=== PATIENT | female | born 1950 | race Caucasian/White ===

== ENCOUNTER 2021-07-11 20:07 | Inpatient (IN) ==
--- NOTE | 2021-07-11 20:31 | Emergency Department Note ---
HPI General Chief complaint: Syncope Stated complaint: syncope Time Seen by Provider: 07/11/21 20:30 Source: EMS Mode of arrival: EMS Limitations: no limitations History of Present Illness HPI Narrative: Narrative: The patient is a 71-year-old female who presents by ambulance. Patient states that she has approximately 4 days postop from outpatient cholecystectomy. She reports syncopal episode x2 today. Patient states that she is having generalized discomfort, lightheadedness and is unable to eat or drink anything. She reports decreased urinary output as well. She states she had one episode of black loose stool. Patient states has been taking acetaminophen as well as ibuprofen and oxycodone. Denies any other complaints. Patient denies taking any blood thinners or anticoagulants. Related Data Home Medications Medication Instructions Recorded Confirmed cholecalciferol (vitamin D3) 25 1,000 unit PO QDAY 12/22/18 07/06/21 mcg (1,000 unit) capsule coenzyme Q10 100 mg capsule 100 mg PO QDAY 12/22/18 07/06/21 (CoQ-10) magnesium oxide-magnesium amino 1 cap PO QDAY cap 12/22/18 07/06/21 acid chelate 300 mg capsule multivit with 1 tab PO QDAY 12/22/18 07/06/21 igyazfeo-xpea-LV-lutein 8 mg iron-400 mcg-300 mcg tablet (Centrum Silver Women) omega 0-ire-zui-fish oil 100 2 cap PO QDAY 12/22/18 07/06/21 mg-150 mg-750 mg capsule vit C,E,zinc,copper-jgqlx4c 250 1 cap PO QDAY 11/23/20 07/06/21 mg-lutein 5 mg-zeaxanthin 1 mg capsule (Ocuvite Adult 50 Plus) gabapentin 100 mg capsule 200 mg PO QAM 07/05/21 07/06/21 lisinopril 10 mg tablet 10 mg PO QAM 07/05/21 07/06/21 piroxicam 10 mg capsule (Feldene) 10 mg PO QAM 07/05/21 07/06/21 Previous Rx's Medication Instructions Recorded atorvastatin 10 mg tablet 10 mg PO QDAY #90 tab 07/11/20 hydrochlorothiazide 25 mg tablet 25 mg PO QDAY #90 tab 07/11/20 acetaminophen 650 mg 650 mg PO Q8H PRN #90 tab 07/06/21 tablet,extended release (Tylenol 8 Hour) ibuprofen 800 mg tablet 800 mg PO TID PRN #90 tab 07/06/21 oxycodone 5 mg tablet 5 mg PO Q6H PRN #5 tab 07/06/21 Allergies Allergy/AdvReac Type Severity Reaction Status Date / Time No Known Drug Allergies Allergy Verified 07/04/21 10:24 Review of Systems ROS ROS Narrative: Narrative: All systems ED: reviewed and negative except as stated. PFSH Narrative Patient History Narrative: Narrative: Medical/Surgical/Family History All Active Problems (Updated 07/11/21 @ 23:16 by Arden Lobo DO) Syncope (Acute) GI bleed (Acute) Thoracic radiculopathy (Acute) Abdominal pain (Acute) Radiculopathy of lumbar region (Acute) Spondylolisthesis, lumbar region (Chronic) Spondylosis without myelopathy or radiculopathy, lumbar region (Chronic) Arthritis (Chronic) Chronic SI joint pain (Chronic) Impetigo any site (Chronic) Other articular cartilage disorders, left hip (Chronic) Foot pain, right (Chronic) Hyperlipidemia (Chronic) Hip pain (Chronic) Well adult exam (Chronic) BMI 29.0-29.9,adult (Chronic) Paresthesia of lower limb (Chronic) Diverticulosis of colon without hemorrhage (Chronic) Colonic polyp (Chronic) Rheumatoid factor positive (Chronic) Polyarthralgia (Chronic) 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) Weight gain (Chronic) Sebaceous cyst (Chronic) Varicose veins of lower extremity (Chronic) Plantar fasciitis (Chronic) Stress (Chronic) Cyst (Chronic) Lumbar back pain (Chronic) Seborrheic keratosis (Chronic) Joint stiffness (Chronic) Joint pain (Chronic) Foot swelling (Chronic) Insomnia (Chronic) Right shoulder pain (Chronic) Right knee pain (Chronic) Left hip pain (Chronic) Hypertension (Chronic) Medical History ANDREW positive Arthritis BMI 29.0-29.9,adult Chronic SI joint pain Colonic polyp Cyst Diverticulosis of colon without hemorrhage Familial multiple lipomatosis Foot pain, right Foot swelling Hip pain Left Hyperlipidemia Hypertension Insomnia Joint pain Joint stiffness Left hip pain Lumbar back pain Other articular cartilage disorders, left hip Paresthesia of lower limb Plantar fasciitis Polyarthralgia Rheumatoid factor positive Right knee pain Right shoulder pain Sebaceous cyst Seborrheic keratosis Spondylolisthesis, lumbar region Spondylosis without myelopathy or radiculopathy, lumbar region Stress Thoracic radiculopathy Varicose veins of lower extremity Weight gain Well adult exam Surgical History History of anterior cruciate ligament surgery History of left knee surgery History of shoulder surgery (~08/31/20) Left shoulder arthroscopy with extensive debridement of rotator cuff, labrum, biceps, and subacromial space. Dr. Vasquez. History of surgery Varicose Vein Stripping and Injections History of vein stripping Hx of colonoscopy (11/10/18) Dr Dawkins, diverticulosis, sm polyp transverse colon. S/P hysterectomy S/P knee surgery Right Family History Mother Breast cancer Osteoporosis Hypertension Osteoarthritis Cancer Rheumatoid arthritis Sister , when in her 40's Breast cancer Brain cancer Hypertension Cancer Father Osteoarthritis Osteoporosis Cancer Diabetes Heart attack Social History Smoking Status: Never smoker Alcohol Intake Frequency: a few times a month Substance Use: does not use Exam Narrative Narrative: Narrative: General Limitations: no limitations General appearance: Present alert Head Head: Present atraumatic and normocephalic Eye Eye: Present normal appearance, PERRL and EOMI ENT ENT: Present normal exam, normal oropharynx and mucous membranes moist Neck Neck: Present normal inspection, full ROM and trachea midline Chest Chest: Present normal inspection and symmetric chest wall rise Respiratory Respiratory: Present normal lung sounds bilaterally Cardiovascular Cardiovascular: Present regular rate and normal rhythm Adbominal Abdominal: Present soft, tenderness and normal bowel sounds; Absent distention, rigidity, ascites or pulsatile mass Rectal Rectal: Present deferred Extremities Extremities: Present normal inspection and full ROM; Absent tenderness Back Back: Present normal inspection and full ROM; Absent tenderness Neurological Neurological: Present alert, oriented X3, CN II-XII intact and other (No facial droop, no pronator drift and no unilateral weakness.) Psychiatric Psychiatric: Present normal affect Skin Skin: Present warm (WNL); Absent rash Course Course Course Narrative: EKG shows a rate of 103, IN interval 130, QRS 85, QTc 451, sinus tachycardia, no STEMI, normal axis, premature ventricular contractions noted. Nonspecific EKG. CT scan of the head without IV contrast shows no acute intracranial abnormality, CT scan of the chest, abdomen and pelvis with IV contrast shows mild to moderate wall thickening and stranding seen of the proximal duodenum may represent duodenitis versus possible duodenal ulcer disease. No evidence for perforation. Patient's blood pressure is improved to systolics of 110. Heart rate improved to the 80s. Patient received IV Protonix as well. I suspect her drop in hemoglobin from 14-10 is likely to upper GI bleed secondary to NSAID use. We will hold any NSAIDs at this time. Patient will be treated with IV fluids and monitored closely overnight. I spoke with the general surgeon Dr. Kane Pereira who is agreed to admit this patient. Vital Signs Vital signs: Vital Signs Temperature 98.0 F 07/11/21 20:08 Pulse Rate 99 H 07/11/21 20:08 Respiratory Rate 18 07/11/21 20:08 Blood Pressure 116/75 07/11/21 20:08 Pulse Oximetry (%) 96 07/11/21 20:08 Temperature 98.0 F 07/11/21 20:08 Pulse Rate 91 H 07/11/21 23:01 Respiratory Rate 14 07/11/21 23:19 Blood Pressure 149/62 07/11/21 23:17 Pulse Oximetry (%) 95 07/11/21 23:01 MDM MDM Narrative Medical decision making narrative: Narrative: Lab Data Result diagrams: 07/11/21 21:19 07/11/21 21:19 Labs: Lab Results 07/11/21 07/11/21 07/11/21 Range/Units 21:19 21:19 21:19 WBC 8.1 (4.5-11.0) K/mcL RBC 3.70 (3.59-5.38) M/mcL Hgb 10.6 L (11.2-15.7) g/dL Hct 32.2 L (34.1-44.9) % MCV 87.0 (80.0-100.0) fL MCH 28.6 (26.0-34.0) pg MCHC 32.9 (31.0-36.0) g/dL RDW 13.0 (11.5-14.5) % Plt Count 213 (140-440) K/mcL MPV 9.5 (7.4-10.4) fL Neut % (Auto) 85.4 H (38.0-78.0) % Lymph % (Auto) 8.6 L (15.5-49.0) % [place] % (Auto) 5.7 (1.0-12.0) % Eos % (Auto) 0.1 (0.0-7.0) % Baso % (Auto) 0.2 (0.0-2.0) % Lymph # (Auto) 0.70 L (1.50-4.80) K/mcL [place] # (Auto) 0.46 (0.10-0.90) K/mcL Eos # (Auto) 0.01 (0.00-0.70) K/mcL Baso # (Auto) 0.02 (0.00-0.30) K/mcL Absolute Neutrophils 6.91 (1.80-8.00) K/mcL PT (11.9-14.5) sec INR (0.9-1.1) VBG Lactic Acid 1.6 (0.5-2.0) mmol/L Sodium 135 (133-145) mmol/L Potassium 4.4 (3.3-5.1) mmol/L Chloride 102 (96-108) mmol/L Carbon Dioxide 21 L (22-30) mmol/L Anion Gap 12.0 (8.0-16.0) BUN 46 H (8-23) mg/dL Creatinine 1.1 (0.6-1.1) mg/dL GFR Calculation 51 Glucose 142 H (70-105) mg/dL Calcium 8.3 L (8.6-10.4) mg/dL Magnesium 2.0 (1.6-2.5) mg/dL Total Bilirubin < 0.2 (0.1-1.0) mg/dL Direct Bilirubin < 0.2 (0-0.3) mg/dL AST 18 (<32) U/L ALT 19 (<40) U/L Alkaline Phosphatase 74 (39-117) U/L Total Creatine Kinase 189 H (24-170) U/L Troponin T (<0.03) ng/mL NT-Pro-B Natriuret Pep 298.4 H (<125.0) pg/mL Total Protein 5.6 L (5.9-8.4) gm/dL Albumin 3.2 (3.2-5.2) gm/dL Globulin 2.4 (2.2-3.7) gm/dL Albumin/Globulin Ratio 1.3 (1.0-2.3) Lipase 26 (7-60) U/L 07/11/21 07/11/21 Range/Units 21:20 21:20 WBC (4.5-11.0) K/mcL RBC (3.59-5.38) M/mcL Hgb (11.2-15.7) g/dL Hct (34.1-44.9) % MCV (80.0-100.0) fL MCH (26.0-34.0) pg MCHC (31.0-36.0) g/dL RDW (11.5-14.5) % Plt Count (140-440) K/mcL MPV (7.4-10.4) fL Neut % (Auto) (38.0-78.0) % Lymph % (Auto) (15.5-49.0) % [place] % (Auto) (1.0-12.0) % Eos % (Auto) (0.0-7.0) % Baso % (Auto) (0.0-2.0) % Lymph # (Auto) (1.50-4.80) K/mcL [place] # (Auto) (0.10-0.90) K/mcL Eos # (Auto) (0.00-0.70) K/mcL Baso # (Auto) (0.00-0.30) K/mcL Absolute Neutrophils (1.80-8.00) K/mcL PT 15.1 H (11.9-14.5) sec INR 1.1 (0.9-1.1) VBG Lactic Acid (0.5-2.0) mmol/L Sodium (133-145) mmol/L Potassium (3.3-5.1) mmol/L Chloride (96-108) mmol/L Carbon Dioxide (22-30) mmol/L Anion Gap (8.0-16.0) BUN (8-23) mg/dL Creatinine (0.6-1.1) mg/dL GFR Calculation Glucose (70-105) mg/dL Calcium (8.6-10.4) mg/dL Magnesium (1.6-2.5) mg/dL Total Bilirubin (0.1-1.0) mg/dL Direct Bilirubin (0-0.3) mg/dL AST (<32) U/L ALT (<40) U/L Alkaline Phosphatase (39-117) U/L Total Creatine Kinase (24-170) U/L Troponin T < 0.01 (<0.03) ng/mL NT-Pro-B Natriuret Pep (<125.0) pg/mL Total Protein (5.9-8.4) gm/dL Albumin (3.2-5.2) gm/dL Globulin (2.2-3.7) gm/dL Albumin/Globulin Ratio (1.0-2.3) Lipase (7-60) U/L Discharge Plan Patient/Caregiver Discharge Instructions Pt seen by CONTROL SYSTEMS TECHNICIAN/PA only: No Clinical Impression: Syncope, GI bleed Patient Disposition: Xfer As Inpt ([facility]) Condition: Fair Follow up with: Inez Farrar ARNP [Primary Care Provider] - Prescriptions: No Action Ocuvite Adult 50 Plus 250-5-1 mg capsule 1 cap PO QDAY 0RF Centrum Silver Women 8 mg iron-400 mcg-300 mcg tablet 1 tab PO QDAY 0RF coenzyme Q10 [CoQ-10] 100 mg capsule 100 mg PO QDAY 0RF cholecalciferol (vitamin D3) 1,000 unit capsule 1,000 unit PO QDAY 0RF omega 5-mbi-lfw-fish oil 100-150-750 mg capsule 2 cap PO QDAY 0RF magnesium oxide-Mg AA chelate 300 mg capsule 1 cap PO QDAY 0RF atorvastatin 10 mg tablet 10 mg PO QDAY Qty: 90 4RF hydrochlorothiazide 25 mg tablet 25 mg PO QDAY Qty: 90 4RF lisinopril 10 mg tablet 10 mg PO QAM 0RF piroxicam [Feldene] 10 mg capsule 10 mg PO QAM 0RF gabapentin 100 mg capsule 200 mg PO QAM 0RF Rx Instructions: 1 by mouth every day for 3 days then increase to 2 times a day ibuprofen 800 mg tablet 800 mg PO TID PRN (Reason: pain) Qty: 90 0RF acetaminophen [Tylenol 8 Hour] 650 mg tablet extended release 650 mg PO Q8H PRN (Reason: pain) Qty: 90 0RF oxycodone 5 mg tablet 5 mg PO Q6H PRN (Reason: pain) Qty: 5 0RF
[2021-07-11] MEDS ORDERED: 0.9 % SODIUM CHLORIDE 1,000 ML IV ONE ×2 (20:32→21:51)
[2021-07-11] MEDS ORDERED: ONDANSETRON 4 MG/2 ML VIAL IV ONE (20:32)
[2021-07-11 21:58] LABS: Basophils # (Auto) 0.02 K/mcL (0.00-0.30); Basophils % (Auto) 0.2 % (0.0-2.0); Eosinophils # (Auto) 0.01 K/mcL (0.00-0.70); Eosinophils % (Auto) 0.1 % (0.0-7.0); Hematocrit 32.2 % (34.1-44.9); Hemoglobin 10.6 g/dL (11.2-15.7); Lymphocytes % (Auto) 8.6 % (15.5-49.0); Mean Corpuscular HGB Conc 32.9 g/dL (31.0-36.0); Mean Platelet Volume 9.5 fL (7.4-10.4); Monocytes # (Auto) 0.46 K/mcL (0.10-0.90); Monocytes % (Auto) 5.7 % (1.0-12.0); Neutrophils % (Auto) 85.4 % (38.0-78.0); Platelet Count 213 K/mcL (140-440); WBC 8.1 K/mcL (4.5-11.0)
[2021-07-11 22:07] LABS: INR 1.1 (0.9-1.1); Prothrombin Time 15.1 sec (11.9-14.5)
[2021-07-11 22:41] LABS: proBNP 298.4 pg/mL (<125.0)
[2021-07-11 22:43] LABS: ALT/SGPT 19 U/L (<40); AST/SGOT 18 U/L (<32); Albumin 3.2 gm/dL (3.2-5.2); Albumin/Globulin Ratio 1.3 (1.0-2.3); Alkaline Phosphatase 74 U/L (39-117); Bilirubin,Direct < 0.2 mg/dL (0-0.3); Bilirubin,Total < 0.2 mg/dL (0.1-1.0); Blood Urea Nitrogen 46 mg/dL (8-23); Calcium 8.3 mg/dL (8.6-10.4); Carbon Dioxide 21 mmol/L (22-30); Chloride 102 mmol/L (96-108); Creatine Kinase 189 U/L (24-170); Globulin 2.4 gm/dL (2.2-3.7); Glomerular Filtration Rate 51; Glucose 142 mg/dL (70-105)
[2021-07-11] MEDS ORDERED: PANTOPRAZOLE 40 MG VIAL IV ONE (22:57)
[2021-07-11] MEDS ORDERED: ONDANSETRON 4 MG/2 ML VIAL IV PRN (23:20)
[2021-07-11] MEDS ORDERED: FAMOTIDINE/PF 20 MG/2 ML VIAL IV ONE (23:22)
[2021-07-11] MEDS ORDERED: 0.9 % SODIUM CHLORIDE 250 ML IV SCH (23:30)
[2021-07-12] MEDS ORDERED: 0.9 % SODIUM CHLORIDE 1,000 ML IV ONE (01:17)
--- NOTE | 2021-07-12 03:17 | Cat Scan Report ---
CLINICAL INFORMATION: Syncope and dizziness COMPARISON: None. TECHNIQUE: 2.5 mm helical slices were obtained in the skull base to vertex. Following reconstruction, axial reformatted images were reviewed at bone and parenchymal windows. The exam was performed using radiation dose optimization techniques including, but not limited to, automated exposure control, adjustment of the mA and/or kV according to patient size and use of iterative reconstruction technique. FINDINGS: The ventricles, sulci, fissures, and cisterns are symmetrically enlarged compatible with mild age-related atrophy. No extra-axial fluid collections are identified. Mild patchy chronic ischemic changes, in the deep cerebral white matter, are expected for age. There is no hemorrhage, mass effect, or edema. Bone windows show no osseous abnormality. Centimeter polyp right anterior sphenoid sinus and moderate mucosal thickening in the left lateral recess and left sphenoid sinus suggesting mild sinusitis IMPRESSION: Mild atrophy and chronic ischemic changes in the deep cerebral white matter-expected for age. No acute findings. Mild left sphenoid sinusitis Interpreted and Authenticated by: Alfonso Martin 07/12/21
--- NOTE | 2021-07-12 04:32 | Cat Scan Report ---
CLINICAL INFORMATION: Syncope with chest and abdomen pain. Recent cholecystectomy COMPARISON: Abdomen and pelvic CT 07/02/2021. TECHNIQUE: Enteric contrast was utilized. 80 cc of Isovue-370 were injected intravenously, and 50 seconds later, 0.625 mm helical slices were obtained from the lung apices through the subtrochanteric regions of the femurs. Following reconstruction, 2.5 mm sagittal, coronal and axial reformatted images were processed and reviewed at multiple windows and levels. 7 mm MIP reconstructions were obtained through the lungs to optimize nodule detection.The exam was performed using radiation dose optimization techniques including, but not limited to, automated exposure control, adjustment of the mA and/or kV according to patient size and use of iterative reconstruction technique. FINDINGS: Pulmonary parenchymal windows show minimal scattered groundglass airspace disease in the upper and lower lobes which is likely a combination of atelectasis and, perhaps, fibrosis. No sara infiltrates and no pulmonary nodules.. Pleural spaces are unremarkable-no effusions. Mediastinal windows show the heart is grossly normal in size and configuration. The pulmonary arteries are normal diameter well-opacified without evidence of embolus. Thoracic aorta is also normal diameter and well-opacified. There is no adenopathy in the mediastinal, hilar or axillary regions. Esophagus is grossly normal. The thyroid is unremarkable. Abdominal images show the gallbladder is surgically absent. Intrahepatic and common bile ducts are normal caliber for post postcholecystectomy state CBD is 7 mm. A 14 mm simple cyst is seen in the right hepatic lobe as previously seen. Mild diffuse fatty change noted. Both kidneys, adrenal glands, spleen, pancreas and aorta, including aortic branches, are normal in size, configuration and attenuation without focal lesion. There is no free air, free fluid or adenopathy. 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 The left common iliac vein continues as persistent left inferior vena cava which drains into the left renal vein. The entire right inferior vena cava is flattened with possible thrombus distally extending into the right common and external iliac veins. Enlarged internal iliac vein collaterals are seen in the presacral region. Collaterals appear to drain the right external iliac venous blood into the left iliac venous system. Pelvic images show normal urinary bladder. The uterus is surgically absent. Ovaries not identified with certainty. There are atrophic or surgically absent. There are multiple sigmoid diverticuli but no evidence of diverticulitis. The remainder of the large bowel, appendix region, small bowel and stomach are grossly normal. Bone windows again show grade 1 L4-5 spondylolisthesis due to degenerative facet disease. There is 8 mm L4 anterior subluxation. This results in moderate central canal, bilateral lateral recess IV foraminal narrowing. There is impingement of the exiting L4 and descending L5 nerve roots. Mild chronic wedging of all mid and lower thoracic vertebral bodies from approximately T5-T12. Endplate irregularity is compatible with chronic Scheuermann's disease. There is also moderate degenerative disc disease throughout the mid and lower thoracic spine. IMPRESSION: 1. 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 The right inferior vena cava is flattened with possible thrombus in the distal IVC with extension into the right common and external iliac veins. Large collaterals from the right internal iliac vein cross to drain into the left iliac venous system. These are, predominantly, located in the presacral region. Suggest right lower extremity Doppler to evaluate for right-sided DVT. Ultrasound of the inferior vena cava is also suggested to evaluate for IVC thrombus and diameter measurements. There is no evidence of pulmonary embolus. 2. Sigmoid diverticulosis. 3. Cholecystectomy changes. Bile ducts appear normal 4. Grade 1 L4-5 spondylolisthesis with broad disc protrusion and facet arthropathy resulting in moderate central canal bilateral lateral recess IV foraminal narrowing. There is impingement of the exiting L4 and descending L5 nerve roots. No change. Interpreted and Authenticated by: Alfonso Martin 07/12/21
[2021-07-12] MEDS: 0.9 % SODIUM CHLORIDE 10 ML SYRINGE IV SCH ×3 (05:07→21:19)
[2021-07-12 07:44] LABS: Basophils # (Auto) 0.03 K/mcL (0.00-0.30); Basophils % (Auto) 0.6 % (0.0-2.0); Eosinophils # (Auto) 0.02 K/mcL (0.00-0.70); Eosinophils % (Auto) 0.4 % (0.0-7.0); Hematocrit 26.9 % (34.1-44.9); Lymphocytes # (Auto) 0.63 K/mcL (1.50-4.80); Lymphocytes % (Auto) 13.2 % (15.5-49.0); Mean Cell Volume 86.8 fL (80.0-100.0); Mean Corpuscular HGB Conc 33.5 g/dL (31.0-36.0); Monocytes # (Auto) 0.41 K/mcL (0.10-0.90); Monocytes % (Auto) 8.6 % (1.0-12.0); Neutrophils % (Auto) 77.2 % (38.0-78.0); Platelet Count 186 K/mcL (140-440); Red Cell Distribution Width 13.4 % (11.5-14.5); WBC 4.8 K/mcL (4.5-11.0)
[2021-07-12] MEDS: DOCUSATE SODIUM 100 MG CAPSULE PO SCH ×2 (07:54→21:19)
--- NOTE | 2021-07-12 07:55 | EKG ---
[facility] Test Date: 2021-07-11 Pat Name: Suki Zamudio Department: ED Room: Gender: Female Nursing Program Manager: : 1950 Requested By: Arden Lobo Order Number: [id number] Reading MD: Elder Price D.O. Measurements Intervals [place] Rate: 103 P: 31 HI: 130 QRS: -20 QRSD: 85 T: 41 QT: 344 QTc: 451 Interpretive Statements Sinus tachycardia Multiform ventricular premature complexes Abnormal R wave progression Electronically Signed On 07-12-2021 7:55:12 PST by Elder Price D.O. /store/[email or web address]/[id number]
[2021-07-12] MEDS: 0.9 % SODIUM CHLORIDE 1,000 ML IV SCH ×2 (08:10→18:41)
[2021-07-12 08:13] LABS: ALT/SGPT 16 U/L (<40); AST/SGOT 14 U/L (<32); Albumin/Globulin Ratio 1.7 (1.0-2.3); Alkaline Phosphatase 59 U/L (39-117); Bilirubin,Direct < 0.2 mg/dL (0-0.3); Bilirubin,Total < 0.2 mg/dL (0.1-1.0); Blood Urea Nitrogen 44 mg/dL (8-23); Calcium 7.8 mg/dL (8.6-10.4); Carbon Dioxide 24 mmol/L (22-30); Chloride 112 mmol/L (96-108); Globulin 1.8 gm/dL (2.2-3.7); Glomerular Filtration Rate 75; Glucose 113 mg/dL (70-105); Lactate Dehydrogenase 137 U/L (135-225); Phosphorous 2.1 mg/dL (2.5-4.5); Triglycerides 183 mg/dL (<150); Uric Acid 5.5 mg/dL (2.5-8.0)
--- NOTE | 2021-07-12 08:23 | General Surg History&Physical ---
HPI History of Present Illness Patient information: Note initiated : 07/12/21 at 8:19 am Service Date, if different from initiated Date: [] Patient: Suki Zamudio a 71 y/o F admitted on 07/12/21 for syncope. Chief Complaint: [] History of present illness: Ms. Zamudio is a 71 year old F status post laparoscopic cholecystectomy 6 days ago who presents with history of lightheadedness, syncopal episode at home. She is brought in the emergency room where her hemoglobin had dropped four points. She was found to have guaiac positive stools. Patient has a long history of pain management and nonsteroidal medications over the last several years. Her most recent colonoscopy was 4 years ago, she has never had a upper endoscopy. She denies any nausea vomiting fevers or chills. She reports that her lightheadedness is somewhat better this morning. Review of Systems Review of systems: All systems are reviewed, negative other than above PFSH PFSH All Active Problems Syncope (Acute) GI bleed (Acute) Thoracic radiculopathy (Acute) Abdominal pain (Acute) Radiculopathy of lumbar region (Acute) Spondylolisthesis, lumbar region (Chronic) Spondylosis without myelopathy or radiculopathy, lumbar region (Chronic) Arthritis (Chronic) Chronic SI joint pain (Chronic) Impetigo any site (Chronic) Other articular cartilage disorders, left hip (Chronic) Foot pain, right (Chronic) Hyperlipidemia (Chronic) Hip pain (Chronic) Well adult exam (Chronic) BMI 29.0-29.9,adult (Chronic) Paresthesia of lower limb (Chronic) Diverticulosis of colon without hemorrhage (Chronic) Colonic polyp (Chronic) Rheumatoid factor positive (Chronic) Polyarthralgia (Chronic) 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) Weight gain (Chronic) Sebaceous cyst (Chronic) Varicose veins of lower extremity (Chronic) Plantar fasciitis (Chronic) Stress (Chronic) Cyst (Chronic) Lumbar back pain (Chronic) Seborrheic keratosis (Chronic) Joint stiffness (Chronic) Joint pain (Chronic) Foot swelling (Chronic) Insomnia (Chronic) Right shoulder pain (Chronic) Right knee pain (Chronic) Left hip pain (Chronic) Hypertension (Chronic) Medical History ANDREW positive Arthritis BMI 29.0-29.9,adult Chronic SI joint pain Colonic polyp Cyst Diverticulosis of colon without hemorrhage Familial multiple lipomatosis Foot pain, right Foot swelling Hip pain Left Hyperlipidemia Hypertension Insomnia Joint pain Joint stiffness Left hip pain Lumbar back pain Other articular cartilage disorders, left hip Paresthesia of lower limb Plantar fasciitis Polyarthralgia Rheumatoid factor positive Right knee pain Right shoulder pain Sebaceous cyst Seborrheic keratosis Spondylolisthesis, lumbar region Spondylosis without myelopathy or radiculopathy, lumbar region Stress Thoracic radiculopathy Varicose veins of lower extremity Weight gain Well adult exam Surgical History History of anterior cruciate ligament surgery History of left knee surgery History of shoulder surgery (~08/31/20) Left shoulder arthroscopy with extensive debridement of rotator cuff, labrum, biceps, and subacromial space. Dr. Vasquez. History of surgery Varicose Vein Stripping and Injections History of vein stripping Hx of colonoscopy (11/10/18) Dr Dawkins, diverticulosis, sm polyp transverse colon. S/P hysterectomy S/P knee surgery Right Family History Mother Breast cancer Osteoporosis Hypertension Osteoarthritis Cancer Rheumatoid arthritis Sister , when in her 40's Breast cancer Brain cancer Hypertension Cancer Father Osteoarthritis Osteoporosis Cancer Diabetes Heart attack Social History household members: spouse marital status: occupational status: retired frequency: 3-4 times per week smoking status: Never smoker alcohol intake frequency: a few times a month substance use type: does not use seatbelt use: always MEDS/ALLERGIES Home Medications and Allergies Home Medications Medication Instructions Recorded Confirmed Type cholecalciferol (vitamin D3) 25 1,000 unit PO QDAY 12/22/18 07/12/21 History mcg (1,000 unit) capsule coenzyme Q10 100 mg capsule 100 mg PO QDAY 12/22/18 07/12/21 History (CoQ-10) magnesium oxide-magnesium amino 1 cap PO QDAY cap 12/22/18 07/12/21 History acid chelate 300 mg capsule multivit with 1 tab PO QDAY 12/22/18 07/12/21 History rlklpmyd-cips-DS-lutein 8 mg iron-400 mcg-300 mcg tablet (Centrum Silver Women) omega 4-pyh-jbq-fish oil 100 2 cap PO QDAY 12/22/18 07/12/21 History mg-150 mg-750 mg capsule atorvastatin 10 mg tablet 10 mg PO QDAY #90 tab 07/11/20 07/12/21 Rx hydrochlorothiazide 25 mg tablet 25 mg PO QDAY #90 tab 07/11/20 07/12/21 Rx vit C,E,zinc,copper-mwbeq7g 250 1 cap PO QDAY 11/23/20 07/12/21 History mg-lutein 5 mg-zeaxanthin 1 mg capsule (Ocuvite Adult 50 Plus) gabapentin 100 mg capsule 200 mg PO QAM 07/05/21 07/12/21 History lisinopril 10 mg tablet 10 mg PO QAM 07/05/21 07/12/21 History piroxicam 10 mg capsule (Feldene) 10 mg PO QAM 07/05/21 07/12/21 History acetaminophen 650 mg 650 mg PO Q8H PRN #90 tab 07/06/21 07/12/21 Rx tablet,extended release (Tylenol 8 Hour) ibuprofen 800 mg tablet 800 mg PO TID PRN #90 tab 07/06/21 07/12/21 Rx oxycodone 5 mg tablet 5 mg PO Q6H PRN #5 tab 07/06/21 07/12/21 Rx Allergies Allergy/AdvReac Type Severity Reaction Status Date / Time No Known Drug Allergies Allergy Verified 07/04/21 10:24 Physical Examination Vital Signs Vital signs: Temp Pulse Resp BP Pulse Ox 98.0 F 96 H 18 129/67 97 07/12/21 07:28 07/12/21 07:28 07/12/21 07:28 07/12/21 07:28 07/12/21 07:28 General physical appearance General physical exam: well developed, well nourished and no distress Eyes Eye exam: PERRL and normal ocular movement ENT ENT exam: normal pinna, normal nares, normal mucosa, no hearing loss and no congestion Head Head exam IM: Present atraumatic and normocephalic Neck Neck exam: no masses, no bruits, trachea midline, no lymphadenopathy and no venous distension Cardiovascular Cardiovascular exam IM: Present normal rate and rhythm Respiratory Respiratory exam: normal expansion, normal respiratory effort, clear to percussion and clear to auscultation Abdomen Abdomen: Present soft, non tender and bowel sounds Hernia: Present none Genitourinary Genitourinary (Female): Present normal external genitalia Rectum Rectum: Present normal sphincter tone, no hemorrhoids, no tenderness, no masses and no bleeding Integumentary Integumentary: Present no rash, no growths and no abnormal pigmentation Neurologic Neurologic: Present normal coordination and normal sensation Musculoskeletal Musculoskeletal: Present normal gait and normal posture Psychiatric Psychiatric: Present oriented to time, oriented to person, oriented to place, speech is normal and memory intact Results Labs Result diagrams: 07/12/21 06:32 07/12/21 06:32 Labs: Abnormal lab results 07/11/21 07/11/21 07/11/21 Range/Units 21:19 21:19 21:20 RBC (3.59-5.38) M/mcL Hgb 10.6 L (11.2-15.7) g/dL Hct 32.2 L (34.1-44.9) % Neut % (Auto) 85.4 H (38.0-78.0) % Lymph % (Auto) 8.6 L (15.5-49.0) % Lymph # (Auto) 0.70 L (1.50-4.80) K/mcL PT 15.1 H (11.9-14.5) sec Chloride (96-108) mmol/L Carbon Dioxide 21 L (22-30) mmol/L Anion Gap (8.0-16.0) BUN 46 H (8-23) mg/dL Glucose 142 H (70-105) mg/dL Calcium 8.3 L (8.6-10.4) mg/dL Phosphorus (2.5-4.5) mg/dL GGT (5-36) U/L Total Creatine Kinase 189 H (24-170) U/L NT-Pro-B Natriuret Pep 298.4 H (<125.0) pg/mL Total Protein 5.6 L (5.9-8.4) gm/dL Albumin (3.2-5.2) gm/dL Globulin (2.2-3.7) gm/dL Triglycerides (<150) mg/dL 07/12/21 07/12/21 Range/Units 06:32 06:32 RBC 3.10 L (3.59-5.38) M/mcL Hgb 9.0 L (11.2-15.7) g/dL Hct 26.9 L (34.1-44.9) % Neut % (Auto) (38.0-78.0) % Lymph % (Auto) 13.2 L (15.5-49.0) % Lymph # (Auto) 0.63 L (1.50-4.80) K/mcL PT (11.9-14.5) sec Chloride 112 H (96-108) mmol/L Carbon Dioxide (22-30) mmol/L Anion Gap 6.0 L (8.0-16.0) BUN 44 H (8-23) mg/dL Glucose 113 H (70-105) mg/dL Calcium 7.8 L (8.6-10.4) mg/dL Phosphorus 2.1 L (2.5-4.5) mg/dL GGT 45 H (5-36) U/L Total Creatine Kinase (24-170) U/L NT-Pro-B Natriuret Pep (<125.0) pg/mL Total Protein 4.8 L (5.9-8.4) gm/dL Albumin 3.0 L (3.2-5.2) gm/dL Globulin 1.8 L (2.2-3.7) gm/dL Triglycerides 183 H (<150) mg/dL Diabetes panel 07/11/21 07/12/21 Range/Units 21:19 06:32 Sodium 135 142 (133-145) mmol/L Potassium 4.4 4.8 (3.3-5.1) mmol/L Chloride 102 112 H (96-108) mmol/L Carbon Dioxide 21 L 24 (22-30) mmol/L BUN 46 H 44 H (8-23) mg/dL Creatinine 1.1 0.8 (0.6-1.1) mg/dL Glucose 142 H 113 H (70-105) mg/dL Calcium 8.3 L 7.8 L (8.6-10.4) mg/dL AST 18 14 (<32) U/L ALT 19 16 (<40) U/L Alkaline Phosphatase 74 59 (39-117) U/L Total Protein 5.6 L 4.8 L (5.9-8.4) gm/dL Albumin 3.2 3.0 L (3.2-5.2) gm/dL Triglycerides 183 H (<150) mg/dL Calcium panel 07/11/21 07/12/21 Range/Units 21:19 06:32 Calcium 8.3 L 7.8 L (8.6-10.4) mg/dL Phosphorus 2.1 L (2.5-4.5) mg/dL Albumin 3.2 3.0 L (3.2-5.2) gm/dL Pituitary panel 07/11/21 07/12/21 Range/Units 21:19 06:32 Sodium 135 142 (133-145) mmol/L Potassium 4.4 4.8 (3.3-5.1) mmol/L Chloride 102 112 H (96-108) mmol/L Carbon Dioxide 21 L 24 (22-30) mmol/L BUN 46 H 44 H (8-23) mg/dL Creatinine 1.1 0.8 (0.6-1.1) mg/dL Glucose 142 H 113 H (70-105) mg/dL Calcium 8.3 L 7.8 L (8.6-10.4) mg/dL Adrenal panel 07/11/21 07/12/21 Range/Units 21:19 06:32 Sodium 135 142 (133-145) mmol/L Potassium 4.4 4.8 (3.3-5.1) mmol/L Chloride 102 112 H (96-108) mmol/L Carbon Dioxide 21 L 24 (22-30) mmol/L BUN 46 H 44 H (8-23) mg/dL Creatinine 1.1 0.8 (0.6-1.1) mg/dL Glucose 142 H 113 H (70-105) mg/dL Calcium 8.3 L 7.8 L (8.6-10.4) mg/dL Total Bilirubin < 0.2 < 0.2 (0.1-1.0) mg/dL AST 18 14 (<32) U/L ALT 19 16 (<40) U/L Alkaline Phosphatase 74 59 (39-117) U/L Total Protein 5.6 L 4.8 L (5.9-8.4) gm/dL Albumin 3.2 3.0 L (3.2-5.2) gm/dL All other labs normal. A/P Assessment and plan (1) GI bleed: Status: Acute Narrative A/P Narrative: This is a pleasant 71-year-old female 1 week status post laparoscopic cholecystectomy who presents with an apparent upper GI bleed. Risk, benefits, alternatives to treatment including EGD discussed with her at length. She and her verbalized understanding, all her questions are answered and they desire to proceed. Time Spent With Patient Time: Total time spent is greater than 50% in coordination of care (as documented) at patient's floor/unit and/or counseling patient:
[2021-07-12] MEDS ORDERED: PROPOFOL 200 MG/20 ML VIAL IV ONE (08:38)
[2021-07-12] MEDS ORDERED: MIDAZOLAM 2 MG/2 ML VIAL ONE (08:39)
[2021-07-12] MEDS ORDERED: PROPOFOL 200 MG/20 ML VIAL IV SCH (09:00)
[2021-07-12] MEDS ORDERED: MIDAZOLAM 2 MG/2 ML VIAL IV SCH (09:00)
[2021-07-12] MEDS ORDERED: 0.9 % SODIUM CHLORIDE 500 ML IV ONE (09:11)
--- NOTE | 2021-07-12 09:26 | EGD Procedure Note ---
EGD Procedure Notes Procedure Information Patient information: Note initiated : 07/12/21 at 9:22 am Service Date: 07/12/21 Patient: Suki Zamudio 71 y/o F admitted on 07/12/21 for syncope. Pre-op diagnosis general: Upper GI bleed Post-Op Diagnosis general: Same, large duodenal ulcer Procedure: Esophagogastroduodenoscopy Procedure Narrative: After risk benefits and alternatives to the procedure were discussed with the patient at length she verbalized understanding and desire to continue with the procedure. Patient was taken to endoscopy. Surgical timeout was taken to verify patient and procedure being performed sedation was administered with 2 mg of Versed and 100 mcg of propofol. An adult gastroscope was entered and advanced under direct vision into the second portion of the duodenum. The antrum was fully inspected, the scope was retroflexed in the stomach. Full examination revealed evidence of recent upper GI bleed, the stomach was fully irrigated and inspected including retroflexion which showed no evidence of of ulcer. The second portion of the duodenum was completely normal, the duodenal bulb was normal. At the the junction between the first and second portion of the duodenum there was a large ulcer with evidence of recent bleed with clot but no active bleed. The ulcer was approximately 3 cm in diameter. There was a smaller 5 cm well-healed ulcer just below this area. The scope was then withdrawn back into the stomach the air was suctioned free and the remainder of the esophagus was within normal limits. The GE junction was at 35 cm. Patient tolerated the procedure well. Assessment: Upper GI bleed, large duodenal ulcer. Patient will be admitted, started on IV proton pump inhibitor. We will follow hematocrit. Plan for repeat EGD in 6 weeks. Image EGD: 1. Full scope including retroflexion 2. Large 3 cm ulcer with clot, no active bleed. 3. 5 mm healed ulcer
[2021-07-12] MEDS: SUCRALFATE 1 GM/10 ML ORAL.SUSP PO SCH ×2 (11:33→17:59)
[2021-07-12] MEDS: PANTOPRAZOLE 40 MG VIAL IV SCH (16:33)
[2021-07-12] MEDS ORDERED: oxyCODONE HCL 5 MG TABLET PO PRN (16:35)
[2021-07-12] MEDS ORDERED: ACETAMINOPHEN 325 MG TABLET PO PRN (16:40)
[2021-07-12] MEDS: HYDROmorphone 0.5 MG/0.5 ML SYRINGE IV PRN (17:03)
[2021-07-12 20:07] LABS: Basophils # (Auto) 0.02 K/mcL (0.00-0.30); Basophils % (Auto) 0.5 % (0.0-2.0); Eosinophils # (Auto) 0.04 K/mcL (0.00-0.70); Eosinophils % (Auto) 0.9 % (0.0-7.0); Hematocrit 23.5 % (34.1-44.9); Hemoglobin 7.2 g/dL (11.2-15.7); Lymphocytes # (Auto) 0.52 K/mcL (1.50-4.80); Mean Cell Volume 91.1 fL (80.0-100.0); Mean Corpuscular HGB Conc 30.6 g/dL (31.0-36.0); Mean Platelet Volume 10.4 fL (7.4-10.4); Monocytes # (Auto) 0.39 K/mcL (0.10-0.90); Neutrophils % (Auto) 77.6 % (38.0-78.0); Platelet Count 175 K/mcL (140-440); RBC 2.58 M/mcL (3.59-5.38); Red Cell Distribution Width 13.6 % (11.5-14.5); WBC 4.3 K/mcL (4.5-11.0)
[2021-07-12] MEDS ORDERED: 0.9 % SODIUM CHLORIDE 250 ML IV SCH (20:30)
[2021-07-12] MEDS ORDERED: SENNOSIDES 1 TABLET PO SCH (21:00)
[2021-07-13] MEDS: SUCRALFATE 1 GM/10 ML ORAL.SUSP PO SCH ×4 (00:17→19:15)
[2021-07-13] MEDS: 0.9 % SODIUM CHLORIDE 1,000 ML IV SCH ×2 (04:22→19:14)
[2021-07-13] MEDS: 0.9 % SODIUM CHLORIDE 10 ML SYRINGE IV SCH ×2 (05:06→13:31)
[2021-07-13] MEDS: PANTOPRAZOLE 40 MG VIAL IV SCH (07:21)
[2021-07-13 07:49] LABS: Basophils # (Auto) 0.03 K/mcL (0.00-0.30); Basophils % (Auto) 0.8 % (0.0-2.0); Eosinophils # (Auto) 0.02 K/mcL (0.00-0.70); Eosinophils % (Auto) 0.6 % (0.0-7.0); Hematocrit 23.3 % (34.1-44.9); Hemoglobin 7.9 g/dL (11.2-15.7); Lymphocytes # (Auto) 0.73 K/mcL (1.50-4.80); Lymphocytes % (Auto) 20.6 % (15.5-49.0); Mean Cell Volume 84.7 fL (80.0-100.0); Mean Corpuscular HGB Conc 33.9 g/dL (31.0-36.0); Mean Platelet Volume 10.5 fL (7.4-10.4); Monocytes # (Auto) 0.41 K/mcL (0.10-0.90); Monocytes % (Auto) 11.6 % (1.0-12.0); Neutrophils % (Auto) 66.4 % (38.0-78.0); Platelet Count 138 K/mcL (140-440); RBC 2.75 M/mcL (3.59-5.38); WBC 3.5 K/mcL (4.5-11.0)
[2021-07-13] MEDS: DOCUSATE SODIUM 100 MG CAPSULE PO SCH (08:28)
--- NOTE | 2021-07-13 08:36 | General Surgery Progress Note ---
SUBJECTIVE Subjective Patient information: Note initiated : 07/13/21 at 8:34 am Service Date, if different from initiated Date: [] Patient: Suki Zamudio 71 y/o F admitted on 07/12/21 for syncope. Chief Complaint: [] Principal diagnosis: Upper GI bleed Interval history: This is a pleasant 71-year-old female 1 week status post laparoscopic cholecystectomy who he presented with a upper GI bleed. EGD yesterday significant for a large duodenal ulcer without signs of active bleed. Last 24 hours H&H is continued to drop, 2 units of blood gave 1 rise in hemoglobin. She continues to have bloody bowel movements and complains of not feeling well. Constitutional Vitals: Vital Signs Temp Pulse Resp BP Pulse Ox 97.1 F 98 H 16 104/64 96 07/13/21 06:56 07/13/21 06:56 07/13/21 06:59 07/13/21 06:56 07/13/21 06:59 Period Temp Pulse Resp BP Sys/Lauren Pulse Ox Last 24 Hr 97.1 F-98.6 F 86-104 16-24 87-124/52-75 94-100 Intake and Output 07/12/21 07/13/21 07/13/21 21:59 05:59 13:59 Intake Total 2363 1253 Output Total 1150 850 700 Balance 1213 403 -700 Weight 198 lb 5 oz Intake & Output: Intake & Output 07/12/21 07/13/21 07/13/21 21:59 05:59 13:59 Intake Total 2363 1253 Output Total 1150 850 700 Balance 1213 403 -700 Weight 198 lb 5 oz Intake: IV 1263 123 Sodium Chloride 0.9% 1,000 ml @ 1263 0 100 mls/hr IV .Q10H [facility] Rx#: [id number] Sodium Chloride 0.9% 250 ml @ 123 20 mls/hr IV .[id number] [facility] Rx#: [id number] Oral 1100 480 Blood Product 650 Output: Urine Catheter Amount 200 Void Amount 150 400 Stool 1000 250 700 Other: Meal Lunch Percent of Meal Consumed 100% Urine Appearance Clear Clear Clear Urine Color Dark Yellow Pale Straw Urine Odor Normal Normal Stool Size Copious Moderate Stool Color Dark Red Blood Dark Red Blood Dark Red Blood Stool Consistency Soft Liquid Liquid Loose # Voids 1 # Bowel Movements 5 General appearance: cooperative and no acute distress GI/Abdominal GI/Abdominal exam: Present soft; Absent distended or tenderness A/P Narrative A/P Narrative: Upper GI bleed with evidence of continued bleeding. We will make n.p.o., will discuss with Dr. Manrique possible repeat EGD versus transfer for interventional radiology for superselective embolization. 2 units of blood now, continue to follow H&H. Time Spent With Patient Time: Total time spent is greater than 50% in coordination of care (as documented) at patient's floor/unit and/or counseling patient:
[2021-07-13] MEDS ORDERED: 0.9 % SODIUM CHLORIDE 250 ML IV SCH ×3 (08:45→14:45)
[2021-07-13] MEDS: PANTOPRAZOLE 80 MG in 0.9 % SODIUM CHLORIDE 100 ML IV SCH ×2 (08:55→23:29)
[2021-07-13] MEDS ORDERED: MAGNESIUM OXIDE 400 MG TABLET PO SCH (09:00)
[2021-07-13] MEDS ORDERED: GABAPENTIN 100 MG CAPSULE PO SCH (09:00)
[2021-07-13] MEDS ORDERED: ATORVASTATIN 10 MG TABLET PO SCH (09:00)
[2021-07-13] MEDS ORDERED: HYDROCHLOROTHIAZIDE 25 MG TABLET PO SCH (09:00)
[2021-07-13] MEDS ORDERED: LISINOPRIL 10 MG TABLET PO SCH (09:00)
[2021-07-13] MEDS ORDERED: LACTATED RINGERS 500 ML IV ONE (12:20)
[2021-07-13] MEDS ORDERED: KETAMINE 50 MG/ML ML IV PRN (13:58)
[2021-07-13] MEDS ORDERED: PROPOFOL 200 MG/20 ML VIAL IV ONE ×2 (13:59→15:48)
[2021-07-13] MEDS ORDERED: MIDAZOLAM 2 MG/2 ML VIAL ONE ×2 (13:59→14:02)
[2021-07-13] MEDS ORDERED: PROPOFOL 200 MG/20 ML VIAL IV SCH (14:00)
[2021-07-13] MEDS ORDERED: MIDAZOLAM 2 MG/2 ML VIAL IV SCH (14:00)
--- NOTE | 2021-07-13 14:00 | Internal Medicine Consult Note ---
HPI Data of Consult Patient: new to practice Consult date: 07/13/21 Requesting physician: Kane Pereira Primary Care Provider: PAUL Burden Consult Narrative Chief complaint: GI bleed History of present illness: 71 year old white female with chronic back pain on Feldene and hydrocodone developed abdominal pain in March. US showed cholelithiasis so she underwent cholecystectomy last week and was discharged on a combination of oxycodone, tylenol and ibuprofen for post op pain control. She had no improvement in her abdominal pain with cholecystectomy and developed melena the day after she was discharged. She had 2 syncopal episodes earlier this week and presented to the ED. EGD yesterday, performed by Dr. Pereira, revealed a large duodenal ulcer (3cm) with adherent clot and stigmata of recent bleeding. There was a smaller partially healed ulcer. Unfortuantely her hgb continues to drop despite receiving 2 units of PRBC and she has had 1500ml of sara hematochezia this morning and hypotension. cc:: CC: Kane Pereira MD PFS PFSH All Active Problems Syncope (Acute) GI bleed (Acute) Thoracic radiculopathy (Acute) Abdominal pain (Acute) Radiculopathy of lumbar region (Acute) Spondylolisthesis, lumbar region (Chronic) Spondylosis without myelopathy or radiculopathy, lumbar region (Chronic) Arthritis (Chronic) Chronic SI joint pain (Chronic) Impetigo any site (Chronic) Other articular cartilage disorders, left hip (Chronic) Foot pain, right (Chronic) Hyperlipidemia (Chronic) Hip pain (Chronic) Well adult exam (Chronic) BMI 29.0-29.9,adult (Chronic) Paresthesia of lower limb (Chronic) Diverticulosis of colon without hemorrhage (Chronic) Colonic polyp (Chronic) Rheumatoid factor positive (Chronic) Polyarthralgia (Chronic) 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) Weight gain (Chronic) Sebaceous cyst (Chronic) Varicose veins of lower extremity (Chronic) Plantar fasciitis (Chronic) Stress (Chronic) Cyst (Chronic) Lumbar back pain (Chronic) Seborrheic keratosis (Chronic) Joint stiffness (Chronic) Joint pain (Chronic) Foot swelling (Chronic) Insomnia (Chronic) Right shoulder pain (Chronic) Right knee pain (Chronic) Left hip pain (Chronic) Hypertension (Chronic) Medical History ANDREW positive Arthritis BMI 29.0-29.9,adult Chronic SI joint pain Colonic polyp Cyst Diverticulosis of colon without hemorrhage Familial multiple lipomatosis Foot pain, right Foot swelling Hip pain Left Hyperlipidemia Hypertension Insomnia Joint pain Joint stiffness Left hip pain Lumbar back pain Other articular cartilage disorders, left hip Paresthesia of lower limb Plantar fasciitis Polyarthralgia Rheumatoid factor positive Right knee pain Right shoulder pain Sebaceous cyst Seborrheic keratosis Spondylolisthesis, lumbar region Spondylosis without myelopathy or radiculopathy, lumbar region Stress Thoracic radiculopathy Varicose veins of lower extremity Weight gain Well adult exam Surgical History History of anterior cruciate ligament surgery History of left knee surgery History of shoulder surgery (~08/31/20) Left shoulder arthroscopy with extensive debridement of rotator cuff, labrum, biceps, and subacromial space. Dr. Vasquez. History of surgery Varicose Vein Stripping and Injections History of vein stripping Hx of colonoscopy (11/10/18) Dr Dawkins, diverticulosis, sm polyp transverse colon. S/P hysterectomy S/P knee surgery Right Family History Mother Breast cancer Osteoporosis Hypertension Osteoarthritis Cancer Rheumatoid arthritis Sister , when in her 40's Breast cancer Brain cancer Hypertension Cancer Father Osteoarthritis Osteoporosis Cancer Diabetes Heart attack Social History household members: spouse marital status: occupational status: retired frequency: 3-4 times per week smoking status: Never smoker alcohol intake frequency: a few times a month substance use type: does not use seatbelt use: always MEDS/ALLERGIES Home Medications and Allergies Home Medications Medication Instructions Recorded Confirmed Type cholecalciferol (vitamin D3) 25 1,000 unit PO QDAY 12/22/18 07/12/21 History mcg (1,000 unit) capsule coenzyme Q10 100 mg capsule 100 mg PO QDAY 12/22/18 07/12/21 History (CoQ-10) magnesium oxide-magnesium amino 1 cap PO QDAY cap 12/22/18 07/12/21 History acid chelate 300 mg capsule multivit with 1 tab PO QDAY 12/22/18 07/12/21 History hwyhsskm-vett-KN-lutein 8 mg iron-400 mcg-300 mcg tablet (Centrum Silver Women) omega 5-szg-khy-fish oil 100 2 cap PO QDAY 12/22/18 07/12/21 History mg-150 mg-750 mg capsule atorvastatin 10 mg tablet 10 mg PO QDAY #90 tab 07/11/20 07/12/21 Rx hydrochlorothiazide 25 mg tablet 25 mg PO QDAY #90 tab 07/11/20 07/12/21 Rx vit C,E,zinc,copper-vzpgc7j 250 1 cap PO QDAY 11/23/20 07/12/21 History mg-lutein 5 mg-zeaxanthin 1 mg capsule (Ocuvite Adult 50 Plus) gabapentin 100 mg capsule 200 mg PO QAM 07/05/21 07/12/21 History lisinopril 10 mg tablet 10 mg PO QAM 07/05/21 07/12/21 History piroxicam 10 mg capsule (Feldene) 10 mg PO QAM 07/05/21 07/12/21 History acetaminophen 650 mg 650 mg PO Q8H PRN #90 tab 07/06/21 07/12/21 Rx tablet,extended release (Tylenol 8 Hour) ibuprofen 800 mg tablet 800 mg PO TID PRN #90 tab 07/06/21 07/12/21 Rx oxycodone 5 mg tablet 5 mg PO Q6H PRN #5 tab 07/06/21 07/12/21 Rx Allergies Allergy/AdvReac Type Severity Reaction Status Date / Time No Known Drug Allergies Allergy Verified 07/04/21 10:24 EXAM Constitutional Vitals: Temp Pulse Resp BP Pulse Ox 97.1 F 96 H 14 106/62 98 07/13/21 12:42 07/13/21 12:42 07/13/21 12:42 07/13/21 12:42 07/13/21 12:42 General appearance: average body habitus and cooperative Head Head exam: Present atraumatic, normal inspection and normocephalic Eye Eye exam: Present normal appearance Cardiovascular Cardiovascular exam: Present normal rate and rhythm; Absent gallop, rubs or systolic murmur GI/Abdominal GI/Abdominal exam: Present normal bowel sounds, soft and tenderness; Absent organomegaly Additional comments: epigastric tenderness Neurological Exam Neurological exam: Present alert and oriented X3 Skin Skin exam: Present dry, pallor and warm DATA Data Completed and Pending Labs: Labs from last 24 hours 07/13/21 07/12/21 05:58 17:38 WBC 3.5 L 4.3 L RBC 2.75 L 2.58 L Hgb 7.9 L 7.2 L Hct 23.3 L 23.5 L MCV 84.7 91.1 MCH 28.7 27.9 MCHC 33.9 30.6 L RDW 14.0 13.6 Plt Count 138 L 175 MPV 10.5 H 10.4 Neut % (Auto) 66.4 77.6 Lymph % (Auto) 20.6 12.0 L Emanuel % (Auto) 11.6 9.0 Eos % (Auto) 0.6 0.9 Baso % (Auto) 0.8 0.5 Lymph # (Auto) 0.73 L 0.52 L Emanuel # (Auto) 0.41 0.39 Eos # (Auto) 0.02 0.04 Baso # (Auto) 0.03 0.02 Absolute Neutrophils 2.35 3.37 A/P Assessment and plan (1) GI bleed: Assessment and plan: Strongly suspect she is having rebleeding of her duodenal ulcer. We will arrange for urgent EGD with Dr. Page. If we are unable to achieve hemostasis, she may require surgery or IR. She should avoid all NSAIDS and remain on PPI therapy for her life time. Status: Acute Time Spent With Patient Time: Total time spent is greater than 50% in coordination of care (as documented) at patient's floor/unit and/or counseling patient: Total time spent with greater than 50% in coordination of care (as documented) at patient's floor/unit and/or counseling patient:: 25 - 35 minutes
[2021-07-13] MEDS ORDERED: EPINEPHrine 1 MG/ML AMPUL IV ONE (14:19)
[2021-07-13] MEDS ORDERED: ceFAZolin 2 GM in DEXTROSE 5% IN WATER 50 ML IV SCH (15:15)
[2021-07-13] MEDS ORDERED: ONDANSETRON 4 MG/2 ML VIAL ONE (15:48)
[2021-07-13] MEDS ORDERED: LIDOCAINE HCL/PF 100 MG/5 ML SYRINGE IV ONE (15:48)
[2021-07-13] MEDS ORDERED: SUGAMMADEX SODIUM 200 MG/2 ML VIAL IV ONE (15:48)
[2021-07-13] MEDS ORDERED: KETAMINE 50 MG/ML Syringe (ANEST) IV ONE (15:48)
[2021-07-13] MEDS ORDERED: fentaNYL 250 MCG/5 ML VIAL IV ONE (15:48)
[2021-07-13] MEDS ORDERED: TRANEXAMIC ACID 1,000 MG/10 ML VIAL ONE (15:48)
[2021-07-13] MEDS ORDERED: ROCURONIUM 10 MG/ML ML IV ONE (15:48)
[2021-07-13] MEDS ORDERED: DEXAMETHASONE 10 MG/ML VIAL ONE (15:48)
[2021-07-13] MEDS ORDERED: MAGNESIUM SULFATE 2 GM/50 ML BAG IV ONE (15:48)
[2021-07-13] MEDS ORDERED: PROMETHAZINE 25 MG/ML VIAL IV PRN (17:13)
[2021-07-13] MEDS ORDERED: NALOXONE HCL 0.4 MG/ML VIAL IV PRN (17:13)
[2021-07-13] MEDS ORDERED: fentaNYL 100 MCG/2 ML VIAL IV PRN (17:13)
[2021-07-13] MEDS ORDERED: MEPERIDINE 25 MG/ML VIAL IV PRN (17:13)
[2021-07-13] MEDS ORDERED: diphenhydrAMINE 50 MG/ML VIAL IV PRN (17:13)
[2021-07-13] MEDS ORDERED: LACTATED RINGERS 250 ML IV PRN (17:13)
[2021-07-13] MEDS ORDERED: ACETAMINOPHEN 1,000 MG/100 ML BAG IV ONE ×2 (17:13→18:03)
[2021-07-13] MEDS ORDERED: IPRATROPIUM/ALBUTEROL 3 ML AMPUL.NEB NEB PRN (17:13)
[2021-07-13] MEDS ORDERED: ONDANSETRON 4 MG/2 ML VIAL IV PRN (17:13)
[2021-07-13] MEDS ORDERED: BENZOCAINE/MENTHOL 1 LOZENGE PO PRN (17:13)
[2021-07-13] MEDS ORDERED: LACTATED RINGERS 1,000 ML IV SCH (17:15)
--- NOTE | 2021-07-13 17:18 | Operative Note ---
Brief Operative Note Date of procedure: 07/13/21 Pre-op diagnosis: Bleeding duodenal ulcer Post-op diagnosis: other (Bleeding duodenal ulcer, perforated duodenal ulcer) Procedure: Exploratory laparotomy, oversew of bleeding duodenal ulcer, repair of perforation in duodenum, Vj patch Grafts/Implants: No Anesthesia: GETA Findings: Bleeding and perforated duodenal ulcer Complications: none Surgeon: Kane Pereira Estimated blood loss (cc): 100 Specimens Removed/Pathology: none sent Condition: stable Disposition: ICU Operative Note Operative Note: After risk benefits and alternatives to the procedure were discussed with both the patient and her they verbalized understanding and desire to continue with the procedure. Patient was taken main operating place upon the room table. General anesthesia was induced over endotracheal tube. NG tube and Ragsdale catheters were placed. Patient's and draped in the standard sterile surgical fashion. Surgical timeout was taken to verify patient and procedure being performed. Upper midline incision was made carried down through the skin and subtendinous tissue. The abdominal cavity was then entered under direct vision. Abdominal expiration revealed the duodenal ulcer had perforated. The perforation was opened further proximally and distally to gain full access to the duodenum. The previously placed clips were removed under direct vision and then the location of bleeding in the ulcer was identified. A 3-0 Prolene stitch was placed inferior to the bleeding site and tied down in anticipation of inferior superior and medial suture ligation. Once the single stitch was placed the bleeding completely stopped. The duodenum was copiously irrigated and all blood clot was removed as much as could be reached. The bleeding ulcer was inspected for approximately 15 minutes and no further bleeding was identified. The opening of the duodenum was then closed with interrupted 3-0 Prolene sutures, a tongue of omentum was freed from the transverse colon and it was tied with the tails of the suture repair over the repair and a standard Vj patch fashion. It was also tacked to the stomach with interrupted 3-0 silk sutures. Once this was done a 10 Japanese flat drain was placed in the gallbladder fossa near the repair. The rest abdominal cavity was inspected and no further pathology was identified. The NG tube was then manipulated and went past the repair without difficulty it was then pulled back into the stomach and secured at that location by anesthesia. The midline fascial defect was then closed with a running looped 0 PDS suture. Skin was closed with a running 4 Monocryl suture. Skin glue dressings were applied. The drain was sutured to the skin with a interrupted 2-0 nylon suture. Patient was then awakened from anesthesia transported to intensive care unit awake and in stable condition.
[2021-07-13] MEDS ORDERED: MEPERIDINE 50 MG/ML VIAL ONE (18:01)
[2021-07-13] MEDS: DEXTROSE 5%-1/2NS 1,000 ML IV SCH (18:57)
[2021-07-13 19:14] LABS: Hematocrit 31.2 % (34.1-44.9); Hemoglobin 10.7 g/dL (11.2-15.7); Mean Cell Volume 85.5 fL (80.0-100.0); Mean Corpuscular HGB Conc 34.3 g/dL (31.0-36.0); Platelet Count 125 K/mcL (140-440); RBC 3.65 M/mcL (3.59-5.38); Red Cell Distribution Width 14.1 % (11.5-14.5); WBC 10.7 K/mcL (4.5-11.0)
[2021-07-13] MEDS: HYDROmorphone 0.5 MG/0.5 ML SYRINGE IV PRN ×3 (19:22→23:59)
[2021-07-13 19:37] LABS: Lymphocytes % 5 % (15-49); Platelet Estimate DECREASED (Normal); RBC Morphology NORMAL (Normal); Segmented Neutrophils % 95 % (38-78)
[2021-07-14] MEDS: MEPERIDINE 25 MG/ML VIAL IV PRN (00:56)
[2021-07-14] MEDS ORDERED: MEPERIDINE 50 MG/ML VIAL ONE (00:57)
[2021-07-14] MEDS: DEXTROSE 5%-1/2NS 1,000 ML IV SCH ×3 (02:36→20:01)
[2021-07-14] MEDS: HYDROmorphone 0.5 MG/0.5 ML SYRINGE IV PRN ×10 (02:37→23:20)
[2021-07-14 06:54] LABS: Hematocrit 30.2 % (34.1-44.9); Hemoglobin 9.8 g/dL (11.2-15.7); Mean Cell Volume 87.8 fL (80.0-100.0); Mean Corpuscular HGB Conc 32.5 g/dL (31.0-36.0); Mean Platelet Volume 10.7 fL (7.4-10.4); Platelet Count 124 K/mcL (140-440); RBC 3.44 M/mcL (3.59-5.38); Red Cell Distribution Width 14.8 % (11.5-14.5); WBC 14.3 K/mcL (4.5-11.0)
[2021-07-14] MEDS: PANTOPRAZOLE 80 MG in 0.9 % SODIUM CHLORIDE 100 ML IV SCH ×3 (07:21→21:43)
[2021-07-14 08:22] LABS: Band Neutrophils % 5 % (0-10); Lymphocytes % 4 % (15-49); Monocytes % (Manual) 4 % (1-12); Platelet Estimate DECREASED (Normal); RBC Morphology NORMAL (Normal); Segmented Neutrophils % 87 % (38-78)
[2021-07-14] MEDS: PIPERACILLIN SODIUM/TAZOBACTAM 3.375 GM in DEXTROSE 5% IN WATER 50 ML IV SCH ×3 (11:32→23:38)
--- NOTE | 2021-07-14 11:40 | General Surgery Progress Note ---
SUBJECTIVE Subjective Patient information: Note initiated : 07/14/21 at 10:38 am Service Date, if different from initiated Date: [] Patient: Suki Zamudio 71 y/o F admitted on 07/13/21 for syncope. Chief Complaint: [POD #1 Repair of Perforated and Bleeding Duodenal Ulcer] Some pain this am, nursing adjusting the dilaudid dosing. Family at bedside. No SOB or chest pain. Principal diagnosis: Upper GI bleed Constitutional Vitals: Vital Signs Temp Pulse Resp BP Pulse Ox 98.1 F 88 17 131/66 92 07/14/21 08:00 07/14/21 06:00 07/14/21 11:01 07/14/21 11:01 07/14/21 11:01 Period Temp Pulse Resp BP Sys/Lauren Pulse Ox Last 24 Hr 96.9 F-99.5 F 42-125 9-27 84-165/45-119 92-100 Intake and Output 07/13/21 07/14/21 07/14/21 21:59 05:59 13:59 Intake Total 2487 956 1100 Output Total 660 575 395 Balance 1827 381 705 Weight 211 lb Intake & Output: Intake & Output 07/13/21 07/14/21 07/14/21 21:59 05:59 13:59 Intake Total 2487 956 1100 Output Total 660 575 395 Balance 1827 381 705 Weight 211 lb Intake: IV 215 075 0785 Sodium Chloride 0.9% 1,000 ml @ 737 100 mls/hr IV .Q10H [facility] Rx#: [id number] Sodium Chloride 0.9% 250 ml @ 0 20 mls/hr IV .[id number] [facility] Rx#: [id number] Dextrose 5%-1/2Ns IV Solution 1 956 1000 ,000 ml @ 125 mls/hr IV .Q8H [facility] Rx#:[id number] Protonix 80 mg In Sodium 100 100 Chloride 0.9% 100 ml @ 8 MG/HR 10 mls/hr IV Q10H [facility] Rx#: [id number] Ancef 2 gm In Dextrose 5% in 50 Water 50 ml @ 100 mls/hr IV PREOP [facility] Rx#:[id number] Oral 0 Tube Feeding 0 0 IV - Manual Only 1500 Output: Gastric Drainage 75 Right Nare 75 Drainage 60 205 70 Abdomen 60 Right Upper Abdomen MARILYN Drain 205 70 Drainage 70 Right Upper Abdomen MARILYN Drain 70 Urine Catheter Amount 500 225 Void Amount 325 Emesis 100 Other: Urine Appearance Clear Clear Clear Uretheral ([place]) Clear Clear Urine Color Bright Yellow Dark Yellow Light Noehmy Uretheral ([place]) Dark Yellow Dark Yellow Urine Odor Normal Exam: fully conversant and non toxic Head Head exam: Present atraumatic and normocephalic Eye Eye exam: Present normal appearance; Absent scleral icterus Respiratory Additional comments: normal respiratory effort without distress Cardiovascular Cardiovascular exam: Present RRR GI/Abdominal Additional comments: dressing in place, dry, belly soft and non distended. Functional NGT in place. JPD dark venous appearing blood, modest amounts Extremities Exam Additional comments: non edematous, well perfused A/P Assessment and plan (1) Duodenal ulcer: Assessment and plan: POD #1 Ex Lap with oversew and repair with cornel patch closure of perforated bleeding Duodenal Ulcer Doing reasonably well at this time with stable hemodynamics and brisk urine output, doubt any additional active bleeding at this time Re check H/H later today Continue PPI gtt Adjust pain meds, to bedside chair today if able, continue ICU care, will add IV ABs Re check labs in am Status: Acute Time Spent With Patient Time: Total time spent is greater than 50% in coordination of care (as documented) at patient's floor/unit and/or counseling patient:
[2021-07-14] MEDS ORDERED: PANTOPRAZOLE 40 MG VIAL IV ONE (21:12)
[2021-07-14 23:27] LABS: Hematocrit 23.2 % (34.1-44.9); Hemoglobin 7.7 g/dL (11.2-15.7)
[2021-07-15] MEDS ORDERED: 0.9 % SODIUM CHLORIDE 250 ML IV SCH ×3 (01:00→13:15)
[2021-07-15] MEDS: HYDROmorphone 0.5 MG/0.5 ML SYRINGE IV PRN ×11 (01:04→23:14)
[2021-07-15] MEDS: DEXTROSE 5%-1/2NS 1,000 ML IV SCH ×4 (04:29→18:54)
[2021-07-15] MEDS: PIPERACILLIN SODIUM/TAZOBACTAM 3.375 GM in DEXTROSE 5% IN WATER 50 ML IV SCH ×4 (05:47→23:20)
[2021-07-15 08:49] LABS: Blood Urea Nitrogen 24 mg/dL (8-23); Calcium 6.9 mg/dL (8.6-10.4); Carbon Dioxide 22 mmol/L (22-30); Chloride 110 mmol/L (96-108); Glomerular Filtration Rate 65; Glucose 128 mg/dL (70-105)
[2021-07-15] MEDS ORDERED: CALCIUM GLUCONATE 4.65 MEQ/10 ML VIAL IV ONE (09:01)
[2021-07-15] MEDS: PANTOPRAZOLE 80 MG in 0.9 % SODIUM CHLORIDE 100 ML IV SCH ×4 (09:08→20:00)
[2021-07-15] MEDS ORDERED: CALCIUM GLUCONATE 9.3 MEQ in DEXTROSE 5% IN WATER 50 ML IV ONE (09:15)
[2021-07-15] MEDS ORDERED: CALCIUM GLUCONATE 4.65 MEQ/10 ML VIAL ONE (09:18)
[2021-07-15 09:24] LABS: Hematocrit 27.8 % (34.1-44.9); Hemoglobin 9.2 g/dL (11.2-15.7); Mean Cell Volume 90.3 fL (80.0-100.0); Mean Corpuscular HGB Conc 33.1 g/dL (31.0-36.0); RBC 3.08 M/mcL (3.59-5.38); Red Cell Distribution Width 14.4 % (11.5-14.5); WBC 6.6 K/mcL (4.5-11.0)
[2021-07-15 09:55] LABS: Mean Platelet Volume 12.1 fL (7.4-10.4); Platelet Count 113 K/mcL (140-440)
[2021-07-15 10:05] LABS: Lymphocytes % 17 % (15-49); Monocytes % (Manual) 3 % (1-12); Platelet Estimate DECREASED (Normal); RBC Morphology NORMAL (Normal); Reactive Lymphocytes 2 % (0-2); Segmented Neutrophils % 78 % (38-78)
--- NOTE | 2021-07-15 10:39 | General Surgery Progress Note ---
SUBJECTIVE Subjective Patient information: Note initiated : 07/15/21 at 10:37 am Service Date, if different from initiated Date: [] Patient: Suki Zamudio 71 y/o F admitted on 07/13/21 for syncope. Chief Complaint: [POD #2 Repair and Oversew of Perforated Bleeding Duodenal Ulcer] Transfused 2 PRBCs last night. Some blood has been seen in NGT but has resolved now, pain control ok Principal diagnosis: Upper GI bleed Constitutional Vitals: Vital Signs Temp Pulse Resp BP Pulse Ox 98.3 F 110 H 13 116/74 90 07/15/21 08:01 07/15/21 05:25 07/15/21 10:01 07/15/21 10:01 07/15/21 10:01 Period Temp Pulse Resp BP Sys/Lauren Pulse Ox Last 24 Hr 97.0 F-99.7 F 110-112 8-27 98-131/46-74 90-98 Intake and Output 07/14/21 07/15/21 07/15/21 21:59 05:59 13:59 Intake Total 1150 1375 150 Output Total 845 370 385 Balance 305 1005 -235 Weight 215 lb 3.2 oz Intake & Output: Intake & Output 07/14/21 07/15/21 07/15/21 21:59 05:59 13:59 Intake Total 1150 1375 150 Output Total 845 370 385 Balance 305 1005 -235 Weight 215 lb 3.2 oz Intake: IV 1150 1050 150 Dextrose 5%-1/2Ns IV Solution 1 1000 1000 ,000 ml @ 125 mls/hr IV .Q8H [facility] Rx#:[id number] Protonix 80 mg In Sodium 100 100 Chloride 0.9% 100 ml @ 8 MG/HR 10 mls/hr IV Q10H [facility] Rx#: [id number] Zosyn 3.375 gm In Dextrose 5% 50 50 50 in Water 50 ml @ 100 mls/hr IV Q6H [facility] Rx#:[id number] Oral 0 0 Tube Feeding 0 0 0 Blood Product 325 Output: Gastric Drainage 240 260 Right Nare 240 260 Drainage 30 70 Right Upper Abdomen MARILYN Drain 30 70 Drainage 50 Right Upper Abdomen MARILYN Drain 50 Urine Catheter Amount 525 300 125 Other: Urine Appearance Clear Cloudy Cloudy Sediment Uretheral ([place]) Cloudy Cloudy Urine Color Bright Yellow Dark Yellow Straw Uretheral ([place]) Bright Yellow Straw Urine Odor Normal Normal Exam: awake, conversant, fatigued Head Head exam: Present atraumatic and normocephalic Respiratory Additional comments: able to converse, normal respiratory effort without obvious distress Cardiovascular Cardiovascular exam: Present normal rate and rhythm and RRR GI/Abdominal Additional comments: midline incision looks very good, belly soft and flat, drain bilious but non bloody, NGT light bile, no obvious blood Extremities Exam Additional comments: well perfused A/P Narrative A/P Narrative: POD #2 Will transfuse an additional unit of cells this am - no evidence of active hemorrhage this am but will need to be watched closely. If clearly re bleeds, options wound consider transfer for GDA Embo vs Return to OR Stay 2 units ahead for now Biliary drainage concerning for possible leak from repair site but seems well controlled with drain at this time. Empty drain frequently and watch closely for now Continue ICU cares Time Spent With Patient Time: Total time spent is greater than 50% in coordination of care (as documented) at patient's floor/unit and/or counseling patient:
[2021-07-15 16:19] LABS: Basophils # (Auto) 0.02 K/mcL (0.00-0.30); Basophils % (Auto) 0.3 % (0.0-2.0); Eosinophils # (Auto) 0.02 K/mcL (0.00-0.70); Eosinophils % (Auto) 0.3 % (0.0-7.0); Hematocrit 30.3 % (34.1-44.9); Hemoglobin 10.1 g/dL (11.2-15.7); Lymphocytes % (Auto) 15.8 % (15.5-49.0); Mean Cell Volume 88.6 fL (80.0-100.0); Mean Corpuscular HGB Conc 33.3 g/dL (31.0-36.0); Mean Platelet Volume 10.8 fL (7.4-10.4); Monocytes # (Auto) 0.65 K/mcL (0.10-0.90); Monocytes % (Auto) 10.3 % (1.0-12.0); Neutrophils % (Auto) 73.3 % (38.0-78.0); Platelet Count 119 K/mcL (140-440); RBC 3.42 M/mcL (3.59-5.38); Red Cell Distribution Width 14.4 % (11.5-14.5); WBC 6.3 K/mcL (4.5-11.0)
[2021-07-15] MEDS: MEPERIDINE 25 MG/ML VIAL IV PRN (21:50)
[2021-07-16] MEDS: DEXTROSE 5%-1/2NS 1,000 ML IV SCH ×4 (00:42→21:20)
[2021-07-16] MEDS: HYDROmorphone 0.5 MG/0.5 ML SYRINGE IV PRN ×8 (00:44→20:39)
[2021-07-16] MEDS: 0.9 % SODIUM CHLORIDE 250 ML IV SCH ×2 (04:13→15:57)
[2021-07-16] MEDS: PANTOPRAZOLE 80 MG in 0.9 % SODIUM CHLORIDE 100 ML IV SCH ×3 (05:24→15:59)
[2021-07-16] MEDS: PIPERACILLIN SODIUM/TAZOBACTAM 3.375 GM in DEXTROSE 5% IN WATER 50 ML IV SCH ×3 (05:36→17:30)
[2021-07-16 06:05] LABS: Hematocrit 30.2 % (34.1-44.9); Hemoglobin 9.9 g/dL (11.2-15.7); Mean Corpuscular HGB Conc 32.8 g/dL (31.0-36.0); Mean Platelet Volume 10.4 fL (7.4-10.4); Platelet Count 107 K/mcL (140-440); RBC 3.32 M/mcL (3.59-5.38); Red Cell Distribution Width 14.9 % (11.5-14.5); WBC 4.2 K/mcL (4.5-11.0)
[2021-07-16 06:20] LABS: Blood Urea Nitrogen 14 mg/dL (8-23); Calcium 7.4 mg/dL (8.6-10.4); Carbon Dioxide 24 mmol/L (22-30); Chloride 104 mmol/L (96-108); Glomerular Filtration Rate 75; Glucose 109 mg/dL (70-105)
--- NOTE | 2021-07-16 09:14 | EGD Procedure Note ---
EGD Procedure Notes Procedure Information Patient information: Note initiated : 07/16/21 at 9:11 am Service Date: 07/13/21 Patient: Suki Zamudio 71 y/o F admitted on 07/13/21 for syncope. Pre-op diagnosis general: Melena. Post-Op Diagnosis general: Duodenal ulcer with bleeding. Procedure: EGD with control of bleed Procedure Narrative: The procedure, alternatives and risks were discussed with the patient and the patient's questions were answered. Patient advised of risks of procedure, including perforation and worsening bleed. She was cautioned she is likely to require IR or surgery. With endoscopist-administered intravenous sedation, the Olympus video endoscope was introduced into the esophagus. The esophagus, stomach, and duodenum were examined sequentially. The esophagus appears normal. No hiatal hernia seen. A huge duodenal ulcer with large visible vessel (gastroduodenal artery) was seen. This was injected with 20cc 1:10,000 epinephrine and clips placed x 3. However, the bleeding continued and we were not able to achieve hemostasis.. The gastric mucosa, antrum, pyloric ring and duodenum were otherwise normal. The scope was withdrawn. Assessment: Duodenal ulcer with bleeding. Dr. Pereira, general surgeon, called. She will require interventional radiology or surgery PETER.
--- NOTE | 2021-07-16 14:10 | General Surgery Progress Note ---
SUBJECTIVE Subjective Patient information: Note initiated : 07/16/21 at 2:08 pm Service Date, if different from initiated Date: [] Patient: Suki Zamudio 71 y/o F admitted on 07/13/21 for syncope. Chief Complaint: [] Principal diagnosis: Upper GI bleed Interval history: Postop day #3 status post exploratory laparotomy, duodenotomy and oversew of bleeding duodenal ulcer. Patient is feeling okay today, she is still in the intensive care unit, H&H took a slight drop after 3 units of blood yesterday although appropriate response to the blood. She has no fevers chills nausea or vomiting. Constitutional Vitals: Vital Signs Temp Pulse Resp BP Pulse Ox 99 F 100 H 13 133/73 92 07/16/21 12:01 07/16/21 12:07 07/16/21 13:05 07/16/21 13:01 07/16/21 13:05 Period Temp Pulse Resp BP Sys/Lauren Pulse Ox Last 24 Hr 97.3 F-99.0 F 90-106 8-18 111-148/53-82 91-97 Intake and Output 07/16/21 07/16/21 07/16/21 05:59 13:59 21:59 Intake Total 300 1200 Output Total 570 675 Balance -270 525 Intake & Output: Intake & Output 07/16/21 07/16/21 07/16/21 05:59 13:59 21:59 Intake Total 300 1200 Output Total 570 675 Balance -270 525 Intake: IV 300 1200 Sodium Chloride 0.9% 250 ml @ 250 20 mls/hr IV .[id number] [facility] Rx#: [id number] Dextrose 5%-1/2Ns IV Solution 1 1000 ,000 ml @ 100 mls/hr IV .Q10H [facility] Rx#:[id number] Protonix 80 mg In Sodium 100 Chloride 0.9% 100 ml @ 8 MG/HR 10 mls/hr IV Q10H [facility] Rx#: [id number] Zosyn 3.375 gm In Dextrose 5% 50 100 in Water 50 ml @ 100 mls/hr IV Q6H [facility] Rx#:[id number] Tube Feeding 0 0 Output: Drainage 120 Right Upper Abdomen MARILYN Drain 120 Urine Catheter Amount 450 675 Other: Urine Appearance Cloudy Clear Sediment Uretheral ([place]) Cloudy Urine Color Dark Yellow Dark Yellow Uretheral ([place]) Bright Yellow Urine Odor Normal General appearance: cooperative and no acute distress GI/Abdominal GI/Abdominal exam: Present soft and tenderness (Appropriately tender to palpation); Absent distended Additional comments: Incision is clean dry and intact. NG tube without obvious blood. MARILYN drain with bile tinged fluid. A/P Narrative A/P Narrative: Postop day #3 status post exploratory laparotomy with oversew of bleeding du odenal ulcer. Patient continues to have slow drop in hematocrit, small amount of bile tinged output in the MARILYN drain. Continue with Protonix drip, continue to follow H&H. Continue n.p.o., NG tube. Time Spent With Patient Time: Total time spent is greater than 50% in coordination of care (as documented) at patient's floor/unit and/or counseling patient:
[2021-07-16 18:44] LABS: Basophils # (Auto) 0.02 K/mcL (0.00-0.30); Basophils % (Auto) 0.4 % (0.0-2.0); Eosinophils # (Auto) 0.01 K/mcL (0.00-0.70); Eosinophils % (Auto) 0.2 % (0.0-7.0); Hematocrit 30.3 % (34.1-44.9); Hemoglobin 10.1 g/dL (11.2-15.7); Lymphocytes # (Auto) 0.89 K/mcL (1.50-4.80); Lymphocytes % (Auto) 19.8 % (15.5-49.0); Mean Cell Volume 88.1 fL (80.0-100.0); Mean Corpuscular HGB Conc 33.3 g/dL (31.0-36.0); Mean Platelet Volume 10.3 fL (7.4-10.4); Monocytes % (Auto) 6.7 % (1.0-12.0); Neutrophils % (Auto) 72.9 % (38.0-78.0); Platelet Count 110 K/mcL (140-440); RBC 3.44 M/mcL (3.59-5.38); Red Cell Distribution Width 14.3 % (11.5-14.5); WBC 4.5 K/mcL (4.5-11.0)
[2021-07-16 19:23] LABS: Appearance,Urine Cloudy (Clear); Bilirubin,Urine Negative (Negative); Color,Urine Yellow; Culture Indicated,Urine No; Glucose,Urine (UA) Negative (Negative); Ketones,Urine Negative (Negative); Leukocyte Esterase,Urine Negative /uL (Negative); Nitrate,Urine Negative (Negative); PH,Urine 5.5 (5.0-9.0); Protein,Urine Negative (Negative); Specific Gravity,Urine 1.025 (1.000-1.035); Uric Acid Crystals,Urine MOD /hpf; Urine Blood 2+(Moderate) ery/mcL (Negative); Urine RBC 8 /hpf (0-3); Urine Squamous Epithelial Cell 0 /hpf (0-4); Urine WBC 2 /hpf (0-4); Urobilinogen,Urine Normal
[2021-07-17] MEDS: PIPERACILLIN SODIUM/TAZOBACTAM 3.375 GM in DEXTROSE 5% IN WATER 50 ML IV SCH ×5 (00:31→23:56)
[2021-07-17] MEDS: HYDROmorphone 0.5 MG/0.5 ML SYRINGE IV PRN ×6 (00:33→14:56)
[2021-07-17] MEDS: PANTOPRAZOLE 80 MG in 0.9 % SODIUM CHLORIDE 100 ML IV SCH ×2 (03:17→14:51)
[2021-07-17] MEDS: DEXTROSE 5%-1/2NS 1,000 ML IV SCH ×2 (04:52→15:44)
[2021-07-17 06:07] LABS: Basophils # (Auto) 0.02 K/mcL (0.00-0.30); Basophils % (Auto) 0.5 % (0.0-2.0); Eosinophils # (Auto) 0.03 K/mcL (0.00-0.70); Eosinophils % (Auto) 0.8 % (0.0-7.0); Hematocrit 25.6 % (34.1-44.9); Hemoglobin 8.7 g/dL (11.2-15.7); Lymphocytes # (Auto) 0.91 K/mcL (1.50-4.80); Mean Cell Volume 87.7 fL (80.0-100.0); Mean Platelet Volume 10.5 fL (7.4-10.4); Monocytes # (Auto) 0.25 K/mcL (0.10-0.90); Monocytes % (Auto) 6.3 % (1.0-12.0); Neutrophils % (Auto) 69.4 % (38.0-78.0); Platelet Count 95 K/mcL (140-440); RBC 2.92 M/mcL (3.59-5.38); Red Cell Distribution Width 14.2 % (11.5-14.5)
[2021-07-17 06:28] LABS: Blood Urea Nitrogen 12 mg/dL (8-23); Carbon Dioxide 24 mmol/L (22-30); Chloride 103 mmol/L (96-108); Glomerular Filtration Rate 88; Glucose 115 mg/dL (70-105)
[2021-07-17] MEDS: 0.9 % SODIUM CHLORIDE 250 ML IV SCH ×2 (08:32→20:09)
[2021-07-17] MEDS ORDERED: TPN PER PHARMACY IV SCH (09:05)
--- NOTE | 2021-07-17 09:05 | General Surgery Progress Note ---
SUBJECTIVE Subjective Patient information: Note initiated : 07/17/21 at 9:03 am Service Date, if different from initiated Date: [] Patient: Suki Zamudio 71 y/o F admitted on 07/13/21 for syncope. Chief Complaint: [] Principal diagnosis: Upper GI bleed Interval history: Postop day #4 status post exploratory laparotomy, duodenotomy and oversew of bleeding duodenal ulcer. Patient is feeling okay today, she is still in the intensive care unit, H&H remains relatively stable, no further blood products have been given. NG tube output is minimal, drain output is decreasing but is still bile tinged. She has no fevers chills nausea or vomiting. Constitutional Vitals: Vital Signs Temp Pulse Resp BP Pulse Ox 99.1 F H 100 H 18 109/54 93 07/17/21 08:01 07/16/21 12:07 07/17/21 08:16 07/17/21 08:01 07/17/21 08:16 Period Temp Pulse Resp BP Sys/Lauren Pulse Ox Last 24 Hr 98.4 F-100.4 F 94-106 10-18 99-144/50-82 92-96 Intake and Output 07/16/21 07/17/21 07/17/21 21:59 05:59 13:59 Intake Total 1420 1270 300 Output Total 785 620 Balance 635 650 300 Weight 220 lb 14.4 oz Intake & Output: Intake & Output 07/16/21 07/17/21 07/17/21 21:59 05:59 13:59 Intake Total 1420 1270 300 Output Total 785 620 Balance 635 650 300 Weight 220 lb 14.4 oz Intake: IV 1400 1150 300 Sodium Chloride 0.9% 250 ml @ 250 250 20 mls/hr IV .[id number] [facility] Rx#: [id number] Dextrose 5%-1/2Ns IV Solution 1 1000 1000 ,000 ml @ 100 mls/hr IV .Q10H [facility] Rx#:[id number] Protonix 80 mg In Sodium 100 100 Chloride 0.9% 100 ml @ 8 MG/HR 10 mls/hr IV Q10H [facility] Rx#: [id number] Zosyn 3.375 gm In Dextrose 5% 50 50 50 in Water 50 ml @ 100 mls/hr IV Q6H [facility] Rx#:[id number] Oral 20 120 Tube Feeding 0 0 Output: Gastric Drainage 50 175 Right Nare 50 175 Drainage 20 20 Right Upper Abdomen MARILYN Drain 20 20 Drainage 15 Right Upper Abdomen MARILYN Drain 15 Urine Catheter Amount 700 425 Other: Urine Appearance Clear Clear Uretheral ([place]) Clear Clear Urine Color Dark Yellow Dark Yellow Uretheral ([place]) Dark Yellow Dark Yellow Urine Odor Normal Normal General appearance: cooperative and no acute distress GI/Abdominal GI/Abdominal exam: Present normal bowel sounds and soft; Absent distended Additional comments: Incision is clean dry and intact. Abdomen is appropriately tender to palpation. MARILYN with minimal output, bile tinged. A/P Narrative A/P Narrative: Postoperative day #4 status post exploratory laparotomy for bleeding and perforated duodenal ulcer. Possible small leak from the duodenotomy repair, this is to be expected given the tissue although the drain output is decreasing. H&H remains relatively stable, will continue to check every 12 hours. We will start TPN today, once MARILYN output decreases further will do a Gastrografin study to evaluate for patent duodenum. Continue n.p.o., NG tube. Time Spent With Patient Time: Total time spent is greater than 50% in coordination of care (as documented) at patient's floor/unit and/or counseling patient:
[2021-07-17] MEDS ORDERED: DEXTROSE 50% 50 ML SYRINGE IV PRN (10:34)
[2021-07-17] MEDS: INSULIN LISPRO 1 UNIT/0.01 ML UNIT SQ SCH ×3 (12:12→23:56)
[2021-07-17 13:20] LABS: ALT/SGPT 81 U/L (<40); AST/SGOT 58 U/L (<32); Albumin 2.2 gm/dL (3.2-5.2); Albumin/Globulin Ratio 1.2 (1.0-2.3); Alkaline Phosphatase 106 U/L (39-117); Bilirubin,Direct 0.5 mg/dL (<0.3); Bilirubin,Total 0.7 mg/dL (0.1-1.0); Blood Urea Nitrogen 10 mg/dL (8-23); Calcium 7.4 mg/dL (8.6-10.4); Carbon Dioxide 25 mmol/L (22-30); Chloride 103 mmol/L (96-108); Globulin 1.9 gm/dL (2.2-3.7); Glomerular Filtration Rate 93; Glucose 119 mg/dL (70-105); Lactate Dehydrogenase 305 U/L (135-225); Phosphorous 2.4 mg/dL (2.5-4.5); Prealbumin 13.5 mg/dL (20.0-40.0); Triglycerides 196 mg/dL (<150); Uric Acid 2.2 mg/dL (2.5-8.0)
[2021-07-17] MEDS ORDERED: [UNRECOGNIZED DRUG - OTHER] IV SCH (16:00)
[2021-07-17] MEDS ORDERED: MAGNESIUM SULFATE IV SCH (16:00)
[2021-07-17] MEDS ORDERED: CALCIUM GLUCONATE IV SCH (16:00)
[2021-07-17] MEDS ORDERED: POTASSIUM CHLORIDE IV SCH (16:00)
[2021-07-17] MEDS ORDERED: FAT EMULSION 20% 250 ML in PREMIX 1 BAG IV SCH (16:00)
--- NOTE | 2021-07-17 17:25 | XRay Report ---
INDICATION: PICC PLACEMENT TECHNIQUE: AP portable semiupright chest x-ray COMPARISON: Previous chest x-ray dated 05/02/2006 FINDINGS:Right-sided PICC line with its tip at the junction of the superior vena cava and right atrium. There is an esophagogastric tube with its tip at the point of this film Lungs:There are nonspecific bilateral pulmonary parenchymal infiltrates. Findings are consistent with pneumonia. Pulmonary edema is possible. Heart, vascular:No significant cardiomegaly. Pulmonary vascularity is normal. No pulmonary edema or pulmonary congestion Mediastinum, ama:No mediastinal widening. No hilar mass Pleura:Right hemidiaphragm is elevated. No definite evidence for significant pleural effusion Skeletal:Negative. IMPRESSION: 1. Right-sided PICC line with its tip at the junction of the superior vena cava and right atrium 2. Esophagogastric tube of the plane of this film 3. Bilateral pulmonary parenchymal infiltrates 4. Elevated right hemidiaphragm Interpreted and Authenticated by: Alfonso Mayo 07/17/21
[2021-07-17] MEDS: HYDROmorphone 1 MG/ML SYRINGE IV PRN ×3 (17:30→22:19)
[2021-07-17 19:13] LABS: Basophils # (Auto) 0.02 K/mcL (0.00-0.30); Basophils % (Auto) 0.4 % (0.0-2.0); Eosinophils # (Auto) 0.08 K/mcL (0.00-0.70); Eosinophils % (Auto) 1.6 % (0.0-7.0); Hematocrit 28.9 % (34.1-44.9); Hemoglobin 9.8 g/dL (11.2-15.7); Lymphocytes # (Auto) 1.06 K/mcL (1.50-4.80); Lymphocytes % (Auto) 20.9 % (15.5-49.0); Mean Cell Volume 87.6 fL (80.0-100.0); Mean Corpuscular HGB Conc 33.9 g/dL (31.0-36.0); Mean Platelet Volume 10.2 fL (7.4-10.4); Monocytes # (Auto) 0.31 K/mcL (0.10-0.90); Monocytes % (Auto) 6.1 % (1.0-12.0); Platelet Count 92 K/mcL (140-440); WBC 5.1 K/mcL (4.5-11.0)
[2021-07-17] MEDS: 0.9 % SODIUM CHLORIDE 10 ML SYRINGE IV SCH (21:34)
[2021-07-18] MEDS: PANTOPRAZOLE 80 MG in 0.9 % SODIUM CHLORIDE 100 ML IV SCH ×2 (00:24→10:52)
[2021-07-18] MEDS: HYDROmorphone 1 MG/ML SYRINGE IV PRN ×9 (03:26→23:45)
[2021-07-18] MEDS: DEXTROSE 5%-1/2NS 1,000 ML IV SCH ×2 (05:11→16:39)
[2021-07-18] MEDS: INSULIN LISPRO 1 UNIT/0.01 ML UNIT SQ SCH ×4 (05:12→23:58)
[2021-07-18] MEDS: PIPERACILLIN SODIUM/TAZOBACTAM 3.375 GM in DEXTROSE 5% IN WATER 50 ML IV SCH ×4 (05:37→23:45)
[2021-07-18 07:12] LABS: ALT/SGPT 72 U/L (<40); AST/SGOT 44 U/L (<32); Albumin 2.1 gm/dL (3.2-5.2); Albumin/Globulin Ratio 1.1 (1.0-2.3); Alkaline Phosphatase 110 U/L (39-117); Bilirubin,Direct 0.4 mg/dL (<0.3); Bilirubin,Total 0.6 mg/dL (0.1-1.0); Blood Urea Nitrogen 8 mg/dL (8-23); Calcium 7.3 mg/dL (8.6-10.4); Carbon Dioxide 26 mmol/L (22-30); Chloride 101 mmol/L (96-108); Globulin 1.9 gm/dL (2.2-3.7); Glomerular Filtration Rate 93; Glucose 155 mg/dL (70-105); Lactate Dehydrogenase 295 U/L (135-225); Phosphorous 2.6 mg/dL (2.5-4.5); Triglycerides 211 mg/dL (<150); Uric Acid 1.7 mg/dL (2.5-8.0)
[2021-07-18 08:01] LABS: Basophils # (Auto) 0.02 K/mcL (0.00-0.30); Basophils % (Auto) 0.5 % (0.0-2.0); Eosinophils # (Auto) 0.12 K/mcL (0.00-0.70); Hematocrit 26.3 % (34.1-44.9); Hemoglobin 9.1 g/dL (11.2-15.7); Lymphocytes % (Auto) 27.8 % (15.5-49.0); Mean Cell Volume 88.3 fL (80.0-100.0); Mean Corpuscular HGB Conc 34.6 g/dL (31.0-36.0); Mean Platelet Volume 10.7 fL (7.4-10.4); Monocytes # (Auto) 0.31 K/mcL (0.10-0.90); Monocytes % (Auto) 7.8 % (1.0-12.0); Neutrophils % (Auto) 60.9 % (38.0-78.0); Platelet Count 59 K/mcL (140-440); RBC 2.98 M/mcL (3.59-5.38); Red Cell Distribution Width 13.8 % (11.5-14.5)
[2021-07-18] MEDS: 0.9 % SODIUM CHLORIDE 10 ML SYRINGE IV SCH ×2 (09:54→21:18)
[2021-07-18] MEDS: 0.9 % SODIUM CHLORIDE 250 ML IV SCH (10:27)
--- NOTE | 2021-07-18 12:06 | General Surgery Progress Note ---
SUBJECTIVE Subjective Patient information: Note initiated : 07/18/21 at 12:05 pm Service Date, if different from initiated Date: [] Patient: Suki Zamudio 71 y/o F admitted on 07/13/21 for syncope. Chief Complaint: [] Principal diagnosis: Upper GI bleed Interval history: Patient feels better overnight, has been slowly becoming more active. No fevers chills nausea or vomiting. Constitutional Vitals: Vital Signs Temp Pulse Resp BP Pulse Ox 98.5 F 100 H 14 128/69 93 07/18/21 08:01 07/16/21 12:07 07/18/21 11:37 07/18/21 11:01 07/18/21 11:37 Period Temp Pulse Resp BP Sys/Lauren Pulse Ox Last 24 Hr 97.8 F-99.3 F 03-30 97-129/50-74 93-97 Intake and Output 07/17/21 07/18/21 07/18/21 21:59 05:59 13:59 Intake Total 1742 1456 400 Output Total 1210 1457 425 Balance 532 -1 -25 Weight 221 lb 9.6 oz Intake & Output: Intake & Output 07/17/21 07/18/21 07/18/21 21:59 05:59 13:59 Intake Total 1742 1456 400 Output Total 1210 1457 425 Balance 532 -1 -25 Weight 221 lb 9.6 oz Intake: IV 1382 1396 400 Sodium Chloride 0.9% 250 ml @ 232 250 20 mls/hr IV .[id number] [facility] Rx#: [id number] Dextrose 5%-1/2Ns IV Solution 1 1000 1000 ,000 ml @ 100 mls/hr IV .Q10H [facility] Rx#:[id number] Intralipid 20% 250 ml In Premix 250 1 Bag @ 25 mls/hr IV TuSa@1600 [facility] Rx#:[id number] Protonix 80 mg In Sodium 100 96 100 Chloride 0.9% 100 ml @ 8 MG/HR 10 mls/hr IV Q10H [facility] Rx#: [id number] Zosyn 3.375 gm In Dextrose 5% 50 50 50 in Water 50 ml @ 100 mls/hr IV Q6H [facility] Rx#:[id number] Oral 360 60 Tube Feeding 0 0 0 Output: Gastric Drainage 325 250 Right Nare 325 250 Drainage 7 Right Upper Abdomen MARILYN Drain 7 Drainage 10 Right Upper Abdomen MARILYN Drain 10 Urine Catheter Amount 875 1200 425 Other: Urine Appearance Clear Clear Clear Uretheral ([place]) Clear Clear Clear Urine Color Dark Yellow Bright Yellow Dark Nohemy Uretheral ([place]) Dark Yellow Dark Yellow Dark Yellow Urine Odor Normal Normal Uretheral ([place]) Normal Stool Size Smear Smear Moderate Stool Color Blood Tinged Black Dark Red Blood Dark Red Blood Stool Consistency Loose Liquid # Bowel Movements 1 1 # of times incontinent of 1 Bowels General appearance: cooperative and no acute distress GI/Abdominal GI/Abdominal exam: Present soft; Absent distended Additional comments: Incision is clean dry and intact, MARILYN drain with serous output, no obvious bile output at this time. A/P Narrative A/P Narrative: Status post exploratory laparotomy for perforated and bleeding duodenal ulcer. H&H is remaining stable, MARILYN output is less bilious. Plan: Upper GI small bowel follow-through to evaluate for integrity of duodenum, if this is okay we will clamp NG tube and start on clear liquid diet. Time Spent With Patient Time: Total time spent is greater than 50% in coordination of care (as documented) at patient's floor/unit and/or counseling patient:
[2021-07-18] MEDS ORDERED: DIATRIZOATE MEGLU/DIATRIZO SOD 120 ML BOTTLE PO ONE (12:52)
--- NOTE | 2021-07-18 13:15 | XRay Report ---
INDICATION: F/U perforated duodenal ulcer TECHNIQUE: Full strength Gastrografin was injected through this patient's esophagogastric tube. Multiple images were obtained in supine and bilateral oblique views. 1 minute 26 seconds fluoroscopy utilized COMPARISON: Previous preoperative CT scan dated 07/11/2021 FINDINGS: There is an esophagogastric tube in the stomach. The tip of the catheter is in the gastric antrum. Stomach appears normal with normal mucosa. No gastric mass. No detectable gastric ulcer. The pylorus, duodenal bulb, duodenal sweep are all normal. There is no obstruction. There is no contrast extravasation. There is a surgical drain in the right upper quadrant. There is no contrast material within the strain following this upper GI procedure IMPRESSION: 1. Negative stomach, duodenal bulb, duodenal sweep 2. No extraluminal contrast extravasation. No obstruction Interpreted and Authenticated by: Alfonso Mayo 07/18/21
[2021-07-18] MEDS ORDERED: MAGNESIUM SULFATE IV SCH (16:00)
[2021-07-18] MEDS ORDERED: [UNRECOGNIZED DRUG - OTHER] IV SCH (16:00)
[2021-07-18] MEDS ORDERED: CALCIUM GLUCONATE IV SCH (16:00)
[2021-07-18] MEDS ORDERED: POTASSIUM CHLORIDE IV SCH (16:00)
[2021-07-18] MEDS: PANTOPRAZOLE 40 MG VIAL IV SCH (16:39)
[2021-07-19] MEDS: HYDROmorphone 1 MG/ML SYRINGE IV PRN ×3 (03:43→08:40)
[2021-07-19] MEDS: DEXTROSE 5%-1/2NS 1,000 ML IV SCH ×3 (03:43→18:31)
[2021-07-19] MEDS: INSULIN LISPRO 1 UNIT/0.01 ML UNIT SQ SCH ×4 (05:41→23:19)
[2021-07-19] MEDS: PIPERACILLIN SODIUM/TAZOBACTAM 3.375 GM in DEXTROSE 5% IN WATER 50 ML IV SCH ×4 (05:41→23:27)
[2021-07-19 07:04] LABS: Basophils # (Auto) 0.01 K/mcL (0.00-0.30); Basophils % (Auto) 0.2 % (0.0-2.0); Eosinophils # (Auto) 0.13 K/mcL (0.00-0.70); Eosinophils % (Auto) 2.8 % (0.0-7.0); Hematocrit 28.7 % (34.1-44.9); Hemoglobin 9.8 g/dL (11.2-15.7); Lymphocytes # (Auto) 1.36 K/mcL (1.50-4.80); Lymphocytes % (Auto) 28.9 % (15.5-49.0); Mean Cell Volume 87.5 fL (80.0-100.0); Mean Corpuscular HGB Conc 34.1 g/dL (31.0-36.0); Mean Platelet Volume 11.7 fL (7.4-10.4); Monocytes # (Auto) 0.42 K/mcL (0.10-0.90); Monocytes % (Auto) 8.9 % (1.0-12.0); Neutrophils % (Auto) 59.2 % (38.0-78.0); Platelet Count 61 K/mcL (140-440); RBC 3.28 M/mcL (3.59-5.38); Red Cell Distribution Width 13.5 % (11.5-14.5); WBC 4.7 K/mcL (4.5-11.0)
[2021-07-19 07:47] LABS: ALT/SGPT 89 U/L (<40); AST/SGOT 55 U/L (<32); Albumin 2.4 gm/dL (3.2-5.2); Albumin/Globulin Ratio 1.1 (1.0-2.3); Alkaline Phosphatase 146 U/L (39-117); Bilirubin,Direct 0.4 mg/dL (<0.3); Bilirubin,Total 0.6 mg/dL (0.1-1.0); Blood Urea Nitrogen 7 mg/dL (8-23); Calcium 7.8 mg/dL (8.6-10.4); Carbon Dioxide 27 mmol/L (22-30); Chloride 99 mmol/L (96-108); Globulin 2.2 gm/dL (2.2-3.7); Glomerular Filtration Rate 93; Glucose 155 mg/dL (70-105); Lactate Dehydrogenase 348 U/L (135-225); Phosphorous 2.7 mg/dL (2.5-4.5); Triglycerides 194 mg/dL (<150); Uric Acid 1.2 mg/dL (2.5-8.0)
[2021-07-19] MEDS ORDERED: POTASSIUM CHLORIDE 20 MEQ in DEXTROSE 5% IN WATER 250 ML IV ONE ×2 (08:04→12:40)
[2021-07-19] MEDS: PANTOPRAZOLE 40 MG VIAL IV SCH ×2 (08:10→18:02)
[2021-07-19] MEDS: 0.9 % SODIUM CHLORIDE 10 ML SYRINGE IV SCH (09:15)
[2021-07-19] MEDS ORDERED: HYDROcodone/APAP 7.5MG/15ML 15 ML UDC PO PRN (10:27)
--- NOTE | 2021-07-19 10:40 | General Surgery Progress Note ---
SUBJECTIVE Subjective Patient information: Note initiated : 07/19/21 at 10:29 am Service Date, if different from initiated Date: [] Patient: Suki Zamudio 71 y/o F admitted on 07/13/21 for syncope. Chief Complaint: [] Principal diagnosis: Upper GI bleed Interval history: Doing well, sbft without leak, tolerated clears last night. H/H stable since friday Constitutional Vitals: Vital Signs Temp Pulse Resp BP Pulse Ox 97.3 F 100 H 15 126/76 94 07/19/21 09:01 07/16/21 12:07 07/19/21 09:34 07/19/21 09:01 07/19/21 09:34 Period Temp Pulse Resp BP Sys/Lauren Pulse Ox Last 24 Hr 97.3 F-100.9 F 11-23 103-140/53-83 91-97 Intake and Output 07/18/21 07/19/21 07/19/21 21:59 05:59 13:59 Intake Total 2243 1090 530 Output Total 1280 440 8187 Balance 943 108 -520 Weight 215 lb Intake & Output: Intake & Output 07/18/21 07/19/21 07/19/21 21:59 05:59 13:59 Intake Total 2243 1090 530 Output Total 4989 766 7733 Balance 943 108 -520 Weight 215 lb Intake: IV 3 1050 50 Sodium Chloride 0.9% 250 ml @ 78 20 mls/hr IV .[id number] [facility] Rx#: [id number] Calcium Gluconate 5 Meq 931 Magnesium Sulfate 8.12 Meq Potassium Chloride 40 Meq Sodium Phosphate 30 Mmol In Clinimix 5%-20% Solution 1,000 ml @ 40 mls/hr IV Q24H [facility] Rx#: [id number] Dextrose 5%-1/2Ns IV Solution 1 1000 1000 ,000 ml @ 100 mls/hr IV .Q10H [facility] Rx#:[id number] Protonix 80 mg In Sodium 34 Chloride 0.9% 100 ml @ 8 MG/HR 10 mls/hr IV Q10H [facility] Rx#: [id number] Zosyn 3.375 gm In Dextrose 5% 50 50 50 in Water 50 ml @ 100 mls/hr IV Q6H [facility] Rx#:[id number] Oral 120 40 480 Tube Feeding 0 0 0 Other 30 Output: Gastric Drainage 400 0 Right Nare 400 0 Drainage 7 Right Upper Abdomen MARILYN Drain 7 Urine Catheter Amount 900 975 800 Stool 250 Other: Urine Appearance Clear Sediment Clear Small Blood Clots Uretheral ([place]) Cloudy Sediment Sediment Small Blood Clots Small Blood Clots Urine Color Dark Yellow Dark Yellow Bright Yellow Uretheral ([place]) Dark Yellow Dark Yellow Urine Odor Normal Stool Size Copious Large Small Stool Color Dark Red Blood Dark Red Blood Brown Stool Consistency Liquid Liquid Liquid # Bowel Movements 1 General appearance: cooperative and no acute distress GI/Abdominal GI/Abdominal exam: Present soft; Absent distended or tenderness Additional comments: Incision is clean dry and intact. Minimal MARILYN output. A/P Narrative A/P Narrative: Patient's slowly improving. We will get PT to evaluate patient for ambulation. DC Ragsdale. We will reevaluate NG tube later today. Time Spent With Patient Time: Total time spent is greater than 50% in coordination of care (as documented) at patient's floor/unit and/or counseling patient:
[2021-07-19 12:28] LABS: POC Blood Urea Nitrogen 7 mg/dL (6-20); POC CO2 26 mmol/L (22-30); POC Calcium, Ionized 1.08 mmEq/L (1.16-1.32); POC Chloride 100 mEq/L (96-108); POC Creatinine 0.5 mg/dL (0.6-1.2); POC Glucose, Random 147 mg/dL (70-105); POC Hematocrit 28 % (36-48); POC Potassium 3.1 mEql/L (3.3-5.1); POC Sodium 136 mEq/L (133-145)
[2021-07-19] MEDS: HYDROcodone/APAP 7.5MG/15ML 15 ML UDC PO PRN ×2 (15:34→22:42)
[2021-07-19] MEDS ORDERED: CALCIUM GLUCONATE IV SCH ×2 (16:00)
[2021-07-19] MEDS ORDERED: [UNRECOGNIZED DRUG - OTHER] IV SCH ×2 (16:00)
[2021-07-19] MEDS ORDERED: MAGNESIUM SULFATE IV SCH ×2 (16:00)
[2021-07-19] MEDS ORDERED: POTASSIUM CHLORIDE IV SCH ×2 (16:00)
[2021-07-19] MEDS ORDERED: PREMIX 1 BAG IV ONE (16:47)
[2021-07-20] MEDS: DEXTROSE 5%-1/2NS 1,000 ML IV SCH ×3 (01:20→14:28)
[2021-07-20] MEDS: HYDROcodone/APAP 7.5MG/15ML 15 ML UDC PO PRN (02:57)
[2021-07-20] MEDS: PIPERACILLIN SODIUM/TAZOBACTAM 3.375 GM in DEXTROSE 5% IN WATER 50 ML IV SCH ×4 (05:16→23:09)
[2021-07-20] MEDS: INSULIN LISPRO 1 UNIT/0.01 ML UNIT SQ SCH ×4 (05:24→23:25)
[2021-07-20] MEDS ORDERED: ONDANSETRON 4 MG/2 ML VIAL IV ONE (06:07)
[2021-07-20] MEDS ORDERED: ONDANSETRON 4 MG/2 ML VIAL ONE (06:16)
[2021-07-20] MEDS: PANTOPRAZOLE 40 MG VIAL IV SCH ×2 (06:52→16:59)
[2021-07-20] MEDS ORDERED: ONDANSETRON 4 MG/2 ML VIAL IV PRN (08:15)
--- NOTE | 2021-07-20 08:35 | General Surgery Progress Note ---
SUBJECTIVE Subjective Patient information: Note initiated : 07/20/21 at 8:33 am Service Date, if different from initiated Date: [] Patient: Suki Zamudio 71 y/o F admitted on 07/13/21 for syncope. Chief Complaint: [] Principal diagnosis: Upper GI bleed Interval history: Postop day #7 status post exploratory laparotomy oversew of bleeding duodenal ulcer and repair of perforated duodenal ulcer. Overnight patient was transferred out of the ICU, has become more ambulatory, is tolerating clear liquid diet. She had some nausea this morning after getting up but otherwise is doing well. Constitutional Vitals: Vital Signs Temp Pulse Resp BP Pulse Ox 97.4 F 98 H 16 129/71 97 07/20/21 04:00 07/20/21 04:00 07/20/21 06:56 07/20/21 04:00 07/20/21 04:00 Period Temp Pulse Resp BP Sys/Lauren Pulse Ox Last 24 Hr 96.7 F-99.7 F 78-98 14-23 83-152/59-94 93-97 Intake and Output 07/19/21 07/20/21 07/20/21 21:59 05:59 13:59 Intake Total 360 3149.7526 Output Total 750 5 Balance -390 3144.7526 Weight 212 lb 8 oz Intake & Output: Intake & Output 07/19/21 07/20/21 07/20/21 21:59 05:59 13:59 Intake Total 360 3149.7526 Output Total 750 5 Balance -390 3144.7526 Weight 212 lb 8 oz Intake: IV 360 3149.7526 Calcium Gluconate 5 Meq 2074.7526 Magnesium Sulfate 16.24 Meq Potassium Chloride 80 Meq Sodium Phosphate 60 Mmol In Clinimix 5%-20% Solution 2,000 ml @ 70 mls/hr IV Q24H [facility] Rx#: [id number] Dextrose 5%-1/2Ns IV Solution 1 975 ,000 ml @ 100 mls/hr IV .Q10H [facility] Rx#:[id number] Zosyn 3.375 gm In Dextrose 5% 100 100 in Water 50 ml @ 100 mls/hr IV Q6H [facility] Rx#:[id number] Potassium Chloride 20 Meq In 260 Dextrose 5% in Water 250 ml @ 130 mls/hr IV ONCE ONE Rx#: [id number] Output: Drainage 5 Right Upper Abdomen MARILYN Drain 5 Void Amount 400 Urine/Stool Mix 300 Stool 50 Other: Urine Appearance Clear Clear Urine Color Bright Yellow Straw Stool Size Large Large Copious Stool Color Black Green Dark Red Blood Bright Red Blood Bird Stool Consistency Liquid Liquid Liquid Loose Loose # Voids 1 4 # Bowel Movements 1 4 # of times incontinent of 2 Bowels General appearance: cooperative and no acute distress GI/Abdominal GI/Abdominal exam: Present normal bowel sounds, soft and tenderness; Absent distended Additional comments: MARILYN drain with minimal serous output. A/P Narrative A/P Narrative: Patient is slowly improving. Continue to encourage ambulation. Continue on full liquid diet. Time Spent With Patient Time: Total time spent is greater than 50% in coordination of care (as documented) at patient's floor/unit and/or counseling patient:
[2021-07-20 08:37] LABS: ALT/SGPT 83 U/L (<40); AST/SGOT 41 U/L (<32); Albumin 2.6 gm/dL (3.2-5.2); Albumin/Globulin Ratio 1.1 (1.0-2.3); Alkaline Phosphatase 142 U/L (39-117); Bilirubin,Direct < 0.2 mg/dL (0-0.3); Bilirubin,Total 0.4 mg/dL (0.1-1.0); Blood Urea Nitrogen 11 mg/dL (8-23); Calcium 8.2 mg/dL (8.6-10.4); Carbon Dioxide 21 mmol/L (22-30); Chloride 105 mmol/L (96-108); Globulin 2.3 gm/dL (2.2-3.7); Glomerular Filtration Rate 88; Glucose 197 mg/dL (70-105); Lactate Dehydrogenase 407 U/L (135-225); Phosphorous 2.7 mg/dL (2.5-4.5); Prealbumin 14.1 mg/dL (20.0-40.0); Triglycerides 264 mg/dL (<150); Uric Acid 1.2 mg/dL (2.5-8.0)
[2021-07-20] MEDS ORDERED: MAGNESIUM SULFATE IV SCH (16:00)
[2021-07-20] MEDS ORDERED: [UNRECOGNIZED DRUG - OTHER] IV SCH (16:00)
[2021-07-20] MEDS ORDERED: CALCIUM GLUCONATE IV SCH (16:00)
[2021-07-20] MEDS ORDERED: POTASSIUM CHLORIDE IV SCH (16:00)
[2021-07-21] MEDS: DEXTROSE 5%-1/2NS 1,000 ML IV SCH (00:34)
[2021-07-21] MEDS: PIPERACILLIN SODIUM/TAZOBACTAM 3.375 GM in DEXTROSE 5% IN WATER 50 ML IV SCH ×4 (05:05→23:00)
[2021-07-21] MEDS: 0.9 % SODIUM CHLORIDE 10 ML SYRINGE IV PRN (05:05)
[2021-07-21] MEDS: INSULIN LISPRO 1 UNIT/0.01 ML UNIT SQ SCH ×4 (05:12→23:06)
[2021-07-21] MEDS: PANTOPRAZOLE 40 MG VIAL IV SCH ×2 (07:16→17:47)
[2021-07-21 07:27] LABS: ALT/SGPT 46 U/L (<40); AST/SGOT 19 U/L (<32); Albumin 1.9 gm/dL (3.2-5.2); Albumin/Globulin Ratio 0.9 (1.0-2.3); Alkaline Phosphatase 91 U/L (39-117); Bilirubin,Direct < 0.2 mg/dL (0-0.3); Bilirubin,Total 0.3 mg/dL (0.1-1.0); Blood Urea Nitrogen 13 mg/dL (8-23); Calcium 7.4 mg/dL (8.6-10.4); Carbon Dioxide 24 mmol/L (22-30); Chloride 107 mmol/L (96-108); Globulin 2.1 gm/dL (2.2-3.7); Glomerular Filtration Rate 93; Glucose 141 mg/dL (70-105); Lactate Dehydrogenase 299 U/L (135-225); Phosphorous 2.4 mg/dL (2.5-4.5); Triglycerides 240 mg/dL (<150); Uric Acid 1.2 mg/dL (2.5-8.0)
[2021-07-21 07:29] LABS: Basophils # (Auto) 0.03 K/mcL (0.00-0.30); Basophils % (Auto) 0.5 % (0.0-2.0); Eosinophils # (Auto) 0.09 K/mcL (0.00-0.70); Eosinophils % (Auto) 1.4 % (0.0-7.0); Hematocrit 17.6 % (34.1-44.9); Hemoglobin 5.6 g/dL (11.2-15.7); Lymphocytes # (Auto) 1.29 K/mcL (1.50-4.80); Lymphocytes % (Auto) 20.4 % (15.5-49.0); Mean Cell Volume 89.8 fL (80.0-100.0); Mean Corpuscular HGB Conc 31.8 g/dL (31.0-36.0); Mean Platelet Volume 12.7 fL (7.4-10.4); Monocytes # (Auto) 0.58 K/mcL (0.10-0.90); Monocytes % (Auto) 9.2 % (1.0-12.0); Neutrophils % (Auto) 68.5 % (38.0-78.0); Platelet Count 84 K/mcL (140-440); RBC 1.96 M/mcL (3.59-5.38); Red Cell Distribution Width 13.8 % (11.5-14.5); WBC 6.3 K/mcL (4.5-11.0)
[2021-07-21 07:36] LABS: Prealbumin 13.2 mg/dL (20.0-40.0)
[2021-07-21] MEDS ORDERED: 0.9 % SODIUM CHLORIDE 250 ML IV SCH (08:15)
--- NOTE | 2021-07-21 10:20 | General Surgery Progress Note ---
SUBJECTIVE Subjective Patient information: Note initiated : 07/21/21 at 10:17 am Service Date, if different from initiated Date: [] Patient: Suki Zamudio 71 y/o F admitted on 07/13/21 for syncope. Chief Complaint: [] Principal diagnosis: Upper GI bleed Interval history: Postop day #7 patient is doing well, she is tolerating a full liquid diet, she is becoming ambulatory. Yesterday she felt a small amount of nausea in the morning, however this morning she feels much better. Constitutional Vitals: Vital Signs Temp Pulse Resp BP Pulse Ox 98.2 F 104 H 18 112/64 96 07/21/21 06:44 07/21/21 06:44 07/21/21 06:44 07/21/21 06:44 07/21/21 06:44 Period Temp Pulse Resp BP Sys/Lauren Pulse Ox Last 24 Hr 97.7 F-99.8 F 100-111 16-24 98-118/53-64 92-96 Intake and Output 07/20/21 07/21/21 07/21/21 21:59 05:59 13:59 Intake Total 870 1100 240 Output Total 450 855 Balance 420 245 240 Weight 215 lb 11.2 oz Intake & Output: Intake & Output 07/20/21 07/21/21 07/21/21 21:59 05:59 13:59 Intake Total 870 1100 240 Output Total 450 855 Balance 420 245 240 Weight 215 lb 11.2 oz Intake: IV 50 1100 Dextrose 5%-1/2Ns IV Solution 1 1000 ,000 ml @ 100 mls/hr IV .Q10H [facility] Rx#:[id number] Zosyn 3.375 gm In Dextrose 5% 50 100 in Water 50 ml @ 100 mls/hr IV Q6H [facility] Rx#:[id number] Oral 820 240 Output: Drainage 5 Right Upper Abdomen MARILYN Drain 5 Urine/Stool Mix 250 850 Stool 200 Other: Meal Dinner Breakfast Percent of Meal Consumed 50% 100% Feeding Ability Independent Stool Size Moderate Moderate Moderate Stool Color Brown Brown Green Dark Red Blood Green Stool Consistency Watery Liquid Watery # Voids 1 # Bowel Movements 1 1 # of times incontinent of 1 Bowels General appearance: cooperative and no acute distress GI/Abdominal GI/Abdominal exam: Present normal bowel sounds and soft; Absent distended or tenderness A/P Narrative A/P Narrative: Decrease H&H this this morning, otherwise she feels good and is hemodynamically stable. 2 units of blood, repeat H&H. Continue with full liquid diet. Wean TPN to off. Time Spent With Patient Time: Total time spent is greater than 50% in coordination of care (as documented) at patient's floor/unit and/or counseling patient:
[2021-07-21] MEDS ORDERED: [UNRECOGNIZED DRUG - OTHER] IV SCH (16:00)
[2021-07-21] MEDS ORDERED: CALCIUM GLUCONATE IV SCH (16:00)
[2021-07-21] MEDS ORDERED: POTASSIUM CHLORIDE IV SCH (16:00)
[2021-07-21] MEDS ORDERED: MAGNESIUM SULFATE IV SCH (16:00)
[2021-07-21 16:40] LABS: Hematocrit 23.9 % (34.1-44.9)
[2021-07-22] MEDS ORDERED: 0.9 % SODIUM CHLORIDE 1,000 ML IV SCH (00:15)
[2021-07-22] MEDS ORDERED: ADENOSINE 3 MG/ML VIAL IV ONE (00:17)
[2021-07-22 00:42] LABS: POC Blood Urea Nitrogen 4 mg/dL (6-20); POC CO2 15 mmol/L (22-30); POC Chloride 117 mEq/L (96-108); POC Creatinine 0.3 mg/dL (0.6-1.2); POC Glucose, Random 70 mg/dL (70-105); POC Hematocrit 17 % (36-48); POC Potassium 2.4 mEql/L (3.3-5.1); POC Sodium 149 mEq/L (133-145)
[2021-07-22] MEDS ORDERED: POTASSIUM CHLORIDE 20 MEQ TABLET PO ONE (00:49)
[2021-07-22] MEDS ORDERED: POTASSIUM CHLORIDE 20 MEQ PACKET PO ONE (00:49)
[2021-07-22] MEDS ORDERED: POTASSIUM CHLORIDE 20 MEQ PACKET ONE (00:57)
[2021-07-22 01:00] LABS: Basophils # (Auto) 0.02 K/mcL (0.00-0.30); Basophils % (Auto) 0.3 % (0.0-2.0); Eosinophils # (Auto) 0.16 K/mcL (0.00-0.70); Eosinophils % (Auto) 2.6 % (0.0-7.0); Hematocrit 19.3 % (34.1-44.9); Hemoglobin 6.5 g/dL (11.2-15.7); Lymphocytes # (Auto) 1.45 K/mcL (1.50-4.80); Lymphocytes % (Auto) 23.7 % (15.5-49.0); Mean Cell Volume 89.4 fL (80.0-100.0); Mean Corpuscular HGB Conc 33.7 g/dL (31.0-36.0); Mean Platelet Volume 11.5 fL (7.4-10.4); Monocytes # (Auto) 0.59 K/mcL (0.10-0.90); Monocytes % (Auto) 9.7 % (1.0-12.0); Neutrophils % (Auto) 63.7 % (38.0-78.0); Platelet Count 99 K/mcL (140-440); RBC 2.16 M/mcL (3.59-5.38); Red Cell Distribution Width 13.7 % (11.5-14.5); WBC 6.1 K/mcL (4.5-11.0)
[2021-07-22] MEDS ORDERED: 0.9 % SODIUM CHLORIDE 250 ML IV SCH (01:00)
--- NOTE | 2021-07-22 01:05 | Internal Medicine Consult Note ---
HPI Data of Consult Patient: new to practice Consult date: 07/22/21 Primary Care Provider: PAUL Burden Consult Narrative Chief complaint: tachycardia Reason for consult: Supraventricular tachycardia History of present illness: Suki Zamudio is a 71-year-old female with a history of hypertension, hyperlipidemia, obesity, laparoscopic cholecystectomy 6 days prior to admission who was admitted for acute anemia and guaiac positive stools on 07/12/2021. The patient underwent an EGD on 07/12/2021 which showed a a 3 cm ulcer with a clot but no active bleeding between the first and second portion of the duodenum as well as a 5 cm well-healed ulcer just below the large ulcer. The patient was started on Protonix IV and monitored. She continued to have a drop in hemoglobin and underwent an exploratory laparotomy with oversew of the bleeding duodenal ulcer, repair of ulcer perforation into the duodenum and Vj patch on 07/13/2021. After the surgery, the patient remained stable for several days, she has been on empiric antibiotics follow-up following the abdominal surgery. A Gastrografin study on 07/18/2021 was negative. On 07/21/2021 the patient developed anemia again with a drop in hemoglobin of 9.8 to 5.6 necessitating red blood cell transfusion. During the night on 07/22/2021 the patient abruptly developed tachycardia and was found to have SVT with a heart rate of 193 on EKG . A rapid response was called and hospital medicine was consulted per hospital protocol protocol. The patient was given 6 mg of adenosine and converted to sinus tachycardia. CBC showed a drop in hemoglobin from 8.0 to 6.5. Blood pressure remained stable. The patient denied chest pain, her main complaint was nausea and not feeling well. Review of systems Constitutional: Positive for fatigue Eyes: no vision changes or pain Cardiovascular: no chest pain, no palpitations Respiratory: no cough or dyspnea Gastrointestinal: Positive for nausea, abdominal pain at surgical incision sites Genitourinary: no dysuria or difficulty voiding Musculoskeletal: no arthralgia or myalgia Integumentary: no skin lesion or wound Neurological: no focal weakness or numbness Psychiatric: no anxiety or depression Physical exam Head: Atraumatic, normal inspection. Eyes: normal appearance, no scleral icterus. Neck: full ROM Respiratory: no respiratory distress. Cardiovascular: Regular tachycardia, S1, S2. GI/Abdominal: Laparotomy scar, MARILYN surgical drain, soft, mildly tender, no guarding. Extremities: Bilateral pitting edema, full range of motion, nontender. Neurological: CN II-XII intact, intact motor, intact sensation. Psychiatric: normal mood. Skin: warm, normal color cc:: CC: Kane Pereira MD 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, lumbar region (Chronic) Arthritis (Chronic) Chronic SI joint pain (Chronic) Impetigo any site (Chronic) Other articular cartilage disorders, left hip (Chronic) Foot pain, right (Chronic) Hyperlipidemia (Chronic) Hip pain (Chronic) Well adult exam (Chronic) BMI 29.0-29.9,adult (Chronic) Paresthesia of lower limb (Chronic) Diverticulosis of colon without hemorrhage (Chronic) Colonic polyp (Chronic) Rheumatoid factor positive (Chronic) Polyarthralgia (Chronic) 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) Weight gain (Chronic) Sebaceous cyst (Chronic) Varicose veins of lower extremity (Chronic) Plantar fasciitis (Chronic) Stress (Chronic) Cyst (Chronic) Lumbar back pain (Chronic) Seborrheic keratosis (Chronic) Joint stiffness (Chronic) Joint pain (Chronic) Foot swelling (Chronic) Insomnia (Chronic) Right shoulder pain (Chronic) Right knee pain (Chronic) Left hip pain (Chronic) Hypertension (Chronic) Medical History (Updated 07/14/21 @ 11:44 by Obed Frost MD) ANDREW positive Arthritis BMI 29.0-29.9,adult Chronic SI joint pain Colonic polyp Cyst Diverticulosis of colon without hemorrhage Familial multiple lipomatosis Foot pain, right Foot swelling Hip pain Left Hyperlipidemia Hypertension Insomnia Joint pain Joint stiffness Left hip pain Lumbar back pain Other articular cartilage disorders, left hip Paresthesia of lower limb Plantar fasciitis Polyarthralgia Rheumatoid factor positive Right knee pain Right shoulder pain Sebaceous cyst Seborrheic keratosis Spondylolisthesis, lumbar region Spondylosis without myelopathy or radiculopathy, lumbar region Stress Thoracic radiculopathy Varicose veins of lower extremity Weight gain Well adult exam Surgical History (Updated 07/20/21 @ 09:37 by Guadalupe Pinzon [facility]) History of anterior cruciate ligament surgery History of exploratory laparotomy 07/13/2021-oversew of bleeding duodenal ulcer, repair of perforation in duodenum, Vj patch History of left knee surgery History of shoulder surgery (~08/31/20) Left shoulder arthroscopy with extensive debridement of rotator cuff, labrum, biceps, and subacromial space. Dr. Vasquez. History of surgery Varicose Vein Stripping and Injections History of vein stripping Hx of colonoscopy (11/10/18) Dr Dawkins, diverticulosis, sm polyp transverse colon. S/P hysterectomy S/P knee surgery Right Family History Mother Breast cancer Osteoporosis Hypertension Osteoarthritis Cancer Rheumatoid arthritis Sister , when in her 40's Breast cancer Brain cancer Hypertension Cancer Father Osteoarthritis Osteoporosis Cancer Diabetes Heart attack Social History household members: spouse marital status: occupational status: retired frequency: 3-4 times per week smoking status: Never smoker alcohol intake frequency: a few times a month substance use type: does not use seatbelt use: always MEDS/ALLERGIES Home Medications and Allergies Home Medications Medication Instructions Recorded Confirmed Type cholecalciferol (vitamin D3) 25 1,000 unit PO QDAY 12/22/18 07/12/21 History mcg (1,000 unit) capsule coenzyme Q10 100 mg capsule 100 mg PO QDAY 12/22/18 07/12/21 History (CoQ-10) magnesium oxide-magnesium amino 1 cap PO QDAY cap 12/22/18 07/12/21 History acid chelate 300 mg capsule multivit with 1 tab PO QDAY 12/22/18 07/12/21 History aclnoddq-obfq-MD-lutein 8 mg iron-400 mcg-300 mcg tablet (Centrum Silver Women) omega 9-eec-oij-fish oil 100 2 cap PO QDAY 12/22/18 07/12/21 History mg-150 mg-750 mg capsule atorvastatin 10 mg tablet 10 mg PO QDAY #90 tab 07/11/20 07/12/21 Rx hydrochlorothiazide 25 mg tablet 25 mg PO QDAY #90 tab 07/11/20 07/12/21 Rx vit C,E,zinc,copper-ijaje3o 250 1 cap PO QDAY 11/23/20 07/12/21 History mg-lutein 5 mg-zeaxanthin 1 mg capsule (Ocuvite Adult 50 Plus) gabapentin 100 mg capsule 200 mg PO QAM 07/05/21 07/12/21 History lisinopril 10 mg tablet 10 mg PO QAM 07/05/21 07/12/21 History piroxicam 10 mg capsule (Feldene) 10 mg PO QAM 07/05/21 07/12/21 History acetaminophen 650 mg 650 mg PO Q8H PRN #90 tab 07/06/21 07/12/21 Rx tablet,extended release (Tylenol 8 Hour) ibuprofen 800 mg tablet 800 mg PO TID PRN #90 tab 07/06/21 07/12/21 Rx oxycodone 5 mg tablet 5 mg PO Q6H PRN #5 tab 07/06/21 07/12/21 Rx Allergies Allergy/AdvReac Type Severity Reaction Status Date / Time No Known Drug Allergies Allergy Verified 07/04/21 10:24 EXAM Constitutional Vitals: Temp Pulse Resp BP Pulse Ox 98.8 F 85 14 113/71 97 07/21/21 23:09 07/21/21 23:09 07/21/21 23:09 07/21/21 23:09 07/21/21 23:09 DATA Data Completed and Pending Labs: Labs from last 24 hours 07/22/21 07/22/21 07/22/21 00:27 00:27 00:27 WBC Pending RBC Pending Hgb Pending Hct Pending POC Hct 17 L* MCV Pending MCH Pending MCHC Pending RDW Pending Plt Count Pending MPV Pending Neut % (Auto) Pending Lymph % (Auto) Treasure % (Auto) Eos % (Auto) Baso % (Auto) Lymph # (Auto) Treasure # (Auto) Eos # (Auto) Baso # (Auto) Absolute Neutrophils POC Sodium 149 H Sodium Pending POC Potassium 2.4 L* Potassium Pending POC Chloride 117 H Chloride Pending Carbon Dioxide Pending POC Total CO2 15 L Anion Gap Pending POC BUN 4 L BUN Pending Creatinine Pending POC Creatinine 0.3 L GFR Calculation Pending Glucose Pending POC Glucose 70 Uric Acid Pending Calcium Pending POC WB Ioniz Calcium 0.90 L Phosphorus Pending Magnesium Pending Total Bilirubin Pending Direct Bilirubin Pending GGT Pending AST Pending ALT Pending Alkaline Phosphatase Pending Lactate Dehydrogenase Pending Total Protein Pending Albumin Pending Globulin Pending Albumin/Globulin Ratio Pending Prealbumin Triglycerides Pending 07/21/21 07/21/21 07/21/21 16:00 05:56 05:56 WBC 6.3 RBC 1.96 L Hgb 8.0 L 5.6 L* Hct 23.9 L 17.6 L* POC Hct MCV 89.8 MCH 28.6 MCHC 31.8 RDW 13.8 Plt Count 84 L MPV 12.7 H Neut % (Auto) 68.5 Lymph % (Auto) 20.4 Treasure % (Auto) 9.2 Eos % (Auto) 1.4 Baso % (Auto) 0.5 Lymph # (Auto) 1.29 L Treasure # (Auto) 0.58 Eos # (Auto) 0.09 Baso # (Auto) 0.03 Absolute Neutrophils 4.34 POC Sodium Sodium 137 POC Potassium Potassium 3.7 POC Chloride Chloride 107 Carbon Dioxide 24 POC Total CO2 Anion Gap 6.0 L POC BUN BUN 13 Creatinine 0.6 POC Creatinine GFR Calculation 93 Glucose 141 H POC Glucose Uric Acid 1.2 L Calcium 7.4 L POC WB Ioniz Calcium Phosphorus 2.4 L Magnesium 1.9 Total Bilirubin 0.3 Direct Bilirubin < 0.2 GGT 77 H AST 19 ALT 46 H Alkaline Phosphatase 91 Lactate Dehydrogenase 299 H Total Protein 4.0 L Albumin 1.9 L Globulin 2.1 L Albumin/Globulin Ratio 0.9 L Prealbumin 13.2 L Triglycerides 240 H A/P Narrative A/P Narrative: Assessment: 71-year-old female with a history of hypertension, hyperlipidemia, obesity, laparoscopic cholecystectomy 6 days prior to admission who was admitted for acute anemia and guaiac positive stools on 07/12/2021 and found to have a large duodenal ulcer with a clot. Patient continued to have GI bleeding and underwent an exploratory laparotomy on 07/13/2021 for oversew of the bleeding ulcer, repair of perforation in the duodenum and a Vj patch. The patient remained stable for several days however developed anemia again on 07/21/2021 necessitating blood transfusion. She developed SVT in the continuity person hours of 07/22/2021 trickling a hospital medicine consult. The patient was found to have recurrent anemia which is the likely reason for SVT. SVT converted to a sinus tachycardia after adenosine 6 mg IV. #Acute upper GI bleeding secondary to duodenal ulcer #Acute anemia necessitating multiple units of red blood cell transfusion #Status post exploratory laparotomy with oversew of bleeding ulcer, repair of perforation into duodenum Vj patch #Resolved supraventricular tachycardia #Rule out lower extremity DVT #Recent laparoscopic cholecystectomy #Congenital duplication of inferior vena cava #Spondylolisthesis #Obesity Plan -Transfer to PCU for closer monitoring, telemetry monitor. -Transfuse 2 units RBC. -Trend hemoglobin and transfuse for hemoglobin less than 7 or symptomatic anemia. -Protonix infusion. -Consider interventional radiology consultation. -Antibiotics per surgery -H. pylori stool antigen. -Avoid NSAIDs. -Check INR. -Bilateral lower extremity duplex. -N.p.o. Time Spent With Patient Time: Total time spent is greater than 50% in coordination of care (as documented) at patient's floor/unit and/or counseling patient:
[2021-07-22 02:21] LABS: ALT/SGPT 32 U/L (<40); AST/SGOT 17 U/L (<32); Albumin 1.6 gm/dL (3.2-5.2); Albumin/Globulin Ratio 0.9 (1.0-2.3); Alkaline Phosphatase 75 U/L (39-117); Bilirubin,Direct < 0.2 mg/dL (0-0.3); Bilirubin,Total 0.3 mg/dL (0.1-1.0); Blood Urea Nitrogen 6 mg/dL (8-23); Calcium 5.4 mg/dL (8.6-10.4); Carbon Dioxide 17 mmol/L (22-30); Chloride 120 mmol/L (96-108); Globulin 1.8 gm/dL (2.2-3.7); Glomerular Filtration Rate 106; Glucose 70 mg/dL (70-105); Lactate Dehydrogenase 257 U/L (135-225); Phosphorous 1.9 mg/dL (2.5-4.5); Triglycerides 221 mg/dL (<150); Uric Acid 1.3 mg/dL (2.5-8.0)
[2021-07-22 02:21] LABS: INR 1.1 (0.9-1.1); Prothrombin Time 14.5 sec (11.9-14.5)
[2021-07-22] MEDS ORDERED: PANTOPRAZOLE 40 MG VIAL IV ONE (04:18)
[2021-07-22] MEDS: PANTOPRAZOLE 80 MG in 0.9 % SODIUM CHLORIDE 100 ML IV SCH ×2 (04:29→14:18)
[2021-07-22] MEDS: INSULIN LISPRO 1 UNIT/0.01 ML UNIT SQ SCH ×3 (06:03→17:47)
[2021-07-22] MEDS: PIPERACILLIN SODIUM/TAZOBACTAM 3.375 GM in DEXTROSE 5% IN WATER 50 ML IV SCH ×3 (06:04→17:47)
[2021-07-22 07:10] LABS: Basophils # (Auto) 0.05 K/mcL (0.00-0.30); Basophils % (Auto) 0.7 % (0.0-2.0); Eosinophils # (Auto) 0.17 K/mcL (0.00-0.70); Eosinophils % (Auto) 2.4 % (0.0-7.0); Hematocrit 29.5 % (34.1-44.9); Hemoglobin 10.1 g/dL (11.2-15.7); Lymphocytes # (Auto) 1.21 K/mcL (1.50-4.80); Lymphocytes % (Auto) 17.2 % (15.5-49.0); Mean Cell Volume 88.6 fL (80.0-100.0); Mean Corpuscular HGB Conc 34.2 g/dL (31.0-36.0); Mean Platelet Volume 12.4 fL (7.4-10.4); Monocytes # (Auto) 0.73 K/mcL (0.10-0.90); Monocytes % (Auto) 10.4 % (1.0-12.0); Neutrophils % (Auto) 69.3 % (38.0-78.0); Platelet Count 134 K/mcL (140-440); RBC 3.33 M/mcL (3.59-5.38); Red Cell Distribution Width 13.7 % (11.5-14.5)
--- NOTE | 2021-07-22 07:10 | XRay Report ---
INDICATION: physician order TECHNIQUE: AP, supine chest x-ray COMPARISON: Previous examination dated 07/17/2021 FINDINGS:No change in right-sided PICC line. There is a surgical drain within the abdomen Lungs:Left lung is negative. Right hemidiaphragm is elevated. There is parenchymal density most consistent with volume loss in the right lung. Heart, vascular:No significant cardiomegaly. Pulmonary vascularity is normal. No pulmonary edema or pulmonary congestion Mediastinum, ama:No mediastinal widening. No hilar mass Pleura:Elevated right hemidiaphragm Skeletal:Negative. IMPRESSION: 1. Elevated right hemidiaphragm and probable right lung volume loss 2. No other acute intrathoracic abnormality Interpreted and Authenticated by: Alfonso Mayo 07/22/21
[2021-07-22] MEDS ORDERED: MAGNESIUM SULFATE 2 GM/50 ML BAG IV ONE (07:19)
[2021-07-22 07:52] LABS: ALT/SGPT 44 U/L (<40); AST/SGOT 22 U/L (<32); Albumin 2.4 gm/dL (3.2-5.2); Albumin/Globulin Ratio 1.1 (1.0-2.3); Alkaline Phosphatase 103 U/L (39-117); Bilirubin,Direct < 0.2 mg/dL (0-0.3); Bilirubin,Total 0.4 mg/dL (0.1-1.0); Blood Urea Nitrogen 8 mg/dL (8-23); Calcium 8.1 mg/dL (8.6-10.4); Carbon Dioxide 24 mmol/L (22-30); Chloride 108 mmol/L (96-108); Globulin 2.2 gm/dL (2.2-3.7); Glomerular Filtration Rate 93; Glucose 92 mg/dL (70-105); Lactate Dehydrogenase 335 U/L (135-225); Phosphorous 3.5 mg/dL (2.5-4.5); Triglycerides 335 mg/dL (<150); Uric Acid 2.4 mg/dL (2.5-8.0)
[2021-07-22] MEDS: 0.9 % SODIUM CHLORIDE 10 ML SYRINGE IV PRN (09:36)
--- NOTE | 2021-07-22 10:09 | General Surgery Progress Note ---
SUBJECTIVE Subjective Patient information: Note initiated : 07/22/21 at 10:05 am Service Date, if different from initiated Date: [] Patient: Suki Zamudio 71 y/o F admitted on 07/13/21 for syncope. Chief Complaint: [] Principal diagnosis: Upper GI bleed Interval history: Over night events noted. Patient had a episode of SVT, was given 2 units of blood and transferred to the ICU. Overnight she remained stable, her blood pressure remained stable her heart rate decreased. After 2 units of blood her white blood cell count went from 8 yesterday morning to 10. This morning she has no complaints, she is ambulatory and feels well. Constitutional Vitals: Vital Signs Temp Pulse Resp BP Pulse Ox 97.0 F 87 21 126/90 96 07/22/21 03:54 07/22/21 03:54 07/22/21 03:54 07/22/21 03:54 07/22/21 03:54 Period Temp Pulse Resp BP Sys/Lauren Pulse Ox Last 24 Hr 97.0 F-98.8 F 85-94 14-21 113-126/63-90 95-98 Intake and Output 07/21/21 07/22/21 07/22/21 21:59 05:59 13:59 Intake Total 3294.7526 1120 300 Output Total 800 Balance 2494.7526 1120 300 Weight 215 lb 3 oz Intake & Output: Intake & Output 07/21/21 07/22/21 07/22/21 21:59 05:59 13:59 Intake Total 3294.7526 1120 300 Output Total 800 Balance 2494.7526 1120 300 Weight 215 lb 3 oz Intake: IV 2414.7526 50 100 Sodium Chloride 0.9% 250 ml @ 250 20 mls/hr IV .[id number] [facility] Rx#: [id number] Calcium Gluconate 5 Meq 2114.7526 Magnesium Sulfate 16.24 Meq Potassium Chloride 160 Meq Sodium Phosphate 60 Mmol In Clinimix 5%-20% Solution 2,000 ml @ 70 mls/hr IV Q24H [facility] Rx#: [id number] Zosyn 3.375 gm In Dextrose 5% 50 50 50 in Water 50 ml @ 100 mls/hr IV Q6H [facility] Rx#:[id number] Oral 880 420 200 Blood Product 650 Output: Void Amount 800 Other: Meal Lunch Percent of Meal Consumed 75% Feeding Ability Independent Stool Color Green Stool Consistency Liquid # Voids 2 General appearance: cooperative and no acute distress GI/Abdominal GI/Abdominal exam: Present soft; Absent distended, guarding or tenderness A/P Narrative A/P Narrative: Episode of SVT overnight, now completely asymptomatic. She has no nausea, her H&H came up appropriately for the 4 units of blood that she was given yesterday. Did not see any further evidence of bleed. Continue full liquid diet. Continue with ambulation. Time Spent With Patient Time: Total time spent is greater than 50% in coordination of care (as documented) at patient's floor/unit and/or counseling patient:
--- NOTE | 2021-07-22 14:51 | EKG ---
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 Measurements Intervals [place] Rate: 193 P: -6 VA: 173 QRS: -5 QRSD: 80 T: 4 QT: 261 QTc: 468 Interpretive Statements Supraventricular tachycardia Electronically Signed On 07-22-2021 14:51:17 PST by Elder Price D.O. /[id number]
--- NOTE | 2021-07-22 14:52 | EKG ---
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 Measurements Intervals [place] Rate: 118 P: 38 OR: 138 QRS: -10 QRSD: 86 T: 33 QT: 332 QTc: 466 Interpretive Statements Sinus tachycardia Multiple ventricular premature complexes Electronically Signed On 07-22-2021 14:51:42 PST by Elder Price D.O. /[email or web address]/[id number]
--- NOTE | 2021-07-22 17:48 | Ultrasound Report ---
INDICATION: Assymetric edema COMPARISON: None. TECHNIQUE: Grayscale and color flow Doppler spectral imaging of the deep venous system in both lower extremities. FINDINGS: Acute thrombus within the right greater saphenous vein. Greater saphenous vein is occluded from the femoral confluence to the level of the knee. Deep venous system in the right lower extremity is otherwise negative. Negative right common femoral vein, femoral vein, popliteal vein, calf veins Acute thrombus within the left greater saphenous vein from the femoral confluence through the mid thigh. Deep venous system in the left lower extremity is otherwise negative. Negative left common femoral vein, femoral vein, popliteal vein, calf veins IMPRESSION: 1. Acute thrombus in the greater saphenous veins bilaterally 2. Otherwise negative examination Interpreted and Authenticated by: Alfonso Mayo 07/22/21
[2021-07-22] MEDS: HYDROmorphone 1 MG/ML SYRINGE IV PRN (18:24)
[2021-07-22] MEDS ORDERED: LACTATED RINGERS 1,000 ML IV ONE (18:30)
[2021-07-22] MEDS ORDERED: IOPAMIDOL 100 ML BOTTLE IV ONE ×2 (19:09→20:27)
--- NOTE | 2021-07-22 19:34 | Cat Scan Report ---
INDICATION: Sudden onset abdo pain, flushed, sweaty. COMPARISON: Previous CT scans dated 07/11/2021 and 07/02/2021 TECHNIQUE: Axial images were obtained through the abdomen and pelvis. Sagittally and coronally reformatted images. 80 mL Isovue 370 injected intravenously. Oral contrast material was not administered FINDINGS: Lung bases:Mild bilateral lower lobe infiltrate or atelectasis. There are small pleural effusions, right worse than left. Present examination was performed as a routine abdominal and pelvic CT scan. Visualization of the pulmonary vasculature is limited. There is a small pulmonary embolism in the distal left pulmonary artery at the origin of the left lower lobe pulmonary artery. Clot extends into the left lower lobe pulmonary artery to its branch point. There is embolic material in the right middle lobe pulmonary artery. Liver:No acute abnormality. Again demonstrated is a 13 mm low-density lesion in the right lobe of the liver consistent with cyst. This is unchanged. There is no hepatic abscess. No new abnormality. Gallbladder, bilary:Previous cholecystectomy. No dilated bile ducts. There are surgical drains in the right upper abdominal quadrant. Spleen:No splenomegaly. Normal enhancement of splenic and portal veins. Pancreas:No pancreatic mass. No peripancreatic abnormality Adrenal glands:Negative Kidneys,ureters,bladder:No solid renal mass. No hydronephrosis. No obstructing or nonobstructing calculi. No hydroureter. No ureteral calculus. No bladder stone. No detectable bladder mass. Gastrointestinal:Prominent sigmoid diverticulosis. No diverticulitis. No detectable colonic mass. Small bowel is prominent and fluid-filled throughout its length. No transition point. No evidence for significant mechanical small bowel obstruction. Findings suggest ileus Mildly distended and fluid-filled stomach. The duodenal bulb is deformed but patent. Duodenum contains fluid. There is no evidence for duodenal perforation. There is no abscess. There is only minimal infiltration of surrounding fat Appendix: The appendix is negative Vascular:Abdominal aorta is negative. There is no abdominal aortic aneurysm. 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 This is a small caliber vessel and joins the left renal vein. There is a filling defect with in this vessel consistent with thrombus Lymphatic:No retroperitoneal or mesenteric adenopathy Mesentery, peritoneum: There is no pneumoperitoneum. No free intraperitoneal fluid. No mesenteric or retroperitoneal mass. No intra-abdominal abscess. Reproductive:Uterus is not identified. No adnexal mass Musculoskeletal:Multilevel degenerative disc disease. There is facet arthropathy at L4-5 with L4-5 anterolisthesis. Sacrum is negative. There is no fracture. No pelvic fracture. Hips are negative. No abdominal wall or inguinal hernia IMPRESSION: 1. No pneumoperitoneum. No intra-abdominal abscess 2. Bilateral lower lobe atelectasis. 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 Probable ileus with mildly dilated fluid-filled small bowel. There is fluid throughout the colon 4. Previous cholecystectomy. Surgical drains in the right upper quadrant 5. Sigmoid diverticulosis. No evidence for diverticulitis 6. The intensive care unit was called with these results, 07/22/20211914 The exam was performed using radiation dose optimization techniques including, but not limited to, automated exposure control, adjustment of the mA and/or kV according to patient size and use of iterative reconstruction technique. Interpreted and Authenticated by: Alfonso Mayo 07/22/21
[2021-07-22] MEDS ORDERED: ENOXAPARIN 30 MG/0.3 ML SYRINGE SQ SCH (19:38)
--- NOTE | 2021-07-22 20:41 | Cat Scan Report ---
INDICATION: eval for PE COMPARISON: Previous abdominal CT scan dated 07/22/2021 TECHNIQUE: Axial images obtained through the chest. 80ml Isovue 370 injected intravenously, and scanning was performed during pulmonary arterial phase. Sagittally and coronally reformatted images were obtained. MIP reformatted images. FINDINGS: Lungs:There are bilateral groundglass infiltrates or mosaic perfusion in the upper lobes. There are bilateral pulmonary parenchymal densities which are peripherally based. Findings may be due to bilateral atelectasis. Pneumonia including covid pneumonia is possible. Groundglass infiltrates are nonspecific in this patient. Mediastinum, vascular:Main pulmonary artery is negative. Main pulmonary artery measures 26 mm in cross-sectional diameter. This is within normal limits. There is embolic material in the distal right and left pulmonary arteries at the branch points. There is pulmonary embolism involving the left lower lobe pulmonary artery as well as segmental branches. There is clot within the left upper lobe pulmonary artery. Lingular arteries are negative. There is embolic material within the right upper lobe and middle lobe pulmonary arteries. Clot burden is considered moderate. Heart:There is mild cardiomegaly. No reflux of contrast material into the inferior vena cava or hepatic veins Pleura:Small right pleural effusion. Right hemidiaphragm is elevated, unchanged. Axilla, supraclavicular regions, chest wall:Negative. No pathologic adenopathy. Musculoskeletal:Negative thoracic spine. No compression fracture. No lytic lesion. No rib or sternal lesions Upper Abdomen:Stomach is moderately distended and fluid-filled. IMPRESSION: 1. Positive examination for pulmonary embolism. Moderate clot burden 2. Chronic elevation right hemidiaphragm 3. Small right pleural effusion 4. Multifocal pulmonary parenchymal density may be atelectasis. Nonspecific bilateral upper lobe groundglass infiltrates or mosaic perfusion The exam was performed using radiation dose optimization techniques including, but not limited to, automated exposure control, adjustment of the mA and/or kV according to patient size and use of iterative reconstruction technique. Interpreted and Authenticated by: Alfonso Mayo 07/22/21
[2021-07-22] MEDS ORDERED: HEPARIN SOD,PORK IN 0.45% NACL 25,000 UNIT in PREMIX 1 BAG IV SCH (23:30)
[2021-07-23] MEDS ORDERED: LACTATED RINGERS 1,000 ML IV SCH
[2021-07-23] MEDS ORDERED: LACTATED RINGERS 1,000 ML IV ONE ×2
[2021-07-23] MEDS ORDERED: HEPARIN SOD,PORK IN 0.45% NACL 500 ML IV ONE (00:08)
[2021-07-23] MEDS ORDERED: 0.9 % SODIUM CHLORIDE 250 ML IV SCH (00:30)
[2021-07-23] MEDS: PANTOPRAZOLE 80 MG in 0.9 % SODIUM CHLORIDE 100 ML IV SCH (00:45)
[2021-07-23] MEDS: PIPERACILLIN SODIUM/TAZOBACTAM 3.375 GM in DEXTROSE 5% IN WATER 50 ML IV SCH (00:45)
[2021-07-23] MEDS: INSULIN LISPRO 1 UNIT/0.01 ML UNIT SQ SCH (00:49)
[2021-07-23 01:25] LABS: POC Calcium, Ionized 1.09 mmEq/L (1.16-1.32); POC Creatinine 0.8 mg/dL (0.6-1.2); POC Potassium 4.8 mEql/L (3.3-5.1)
--- NOTE | 2021-07-31 09:44 | Discharge Summary ---
Discharge Provider Provider Patient information: Note initiated : 07/31/21 at 9:36 am Service Date, if different from initiated Date: [] Patient: Suki Zamudio 71 y/o F admitted on 07/13/21 for syncope. Chief Complaint: [] Date of admission: 07/13/21 18:33 Discharge date: 07/23/21 Primary care physician: PAUL Burden Attending physician on admission: Kane Pereira Consults: 07/22/21 00:03 Consult to Physician [CONS] Stat Comment: Consulting Provider: Vargas Machuca Reason For Exam: Physician to Consult Attending physician on discharge: Kane Pereira COURSE Hospital Course Hospital course: Patient was admitted to the hospital with signs of an upper GI bleed, she underwent an EGD which was significant for a large duodenal ulcer, large clot but without evidence of active bleed, the night of admission she had a drop in her H&H and therefore Dr. Manrique was asked to repeat EGD. On his EGD he found a active bleeder in the center of the ulcer, multiple attempts were taken to try to stop the bleeding this was unsuccessful. Long discussion with her about attempting to transfer to another facility with interventional radiology for possible embolization versus exploratory laparotomy. Several calls were made to try to transfer the patient at that time, however this was unsuccessful due to limitations in bed availability. It was then decided to take the patient to the operating room where she underwent an exploratory laparotomy, was also found to have a perforated duodenal ulcer which was opened further the ulcer was oversewn with good hemostasis. The duodenum was then carefully closed drain was left in place after a Vj patch was placed over the repair and the patient was taken back to the ICU in critical but stable condition. Over the next 2 days she received 3 more units of blood but then her H&H had remained stable, postop day #5 she underwent evaluation with a upper GI which showed no evidence of a leak, her diet was carefully advanced to liquid diet which she was tolerating and TPN was stopped by postop day #8. On the evening of July 22 she had an episode of tachycardia she was transferred back to the ICU was given 2 additional units of blood which brought her H&H up appropriately, the remainder that day she was hemodynamically stable tolerating a full liquid diet and ambulatory. Approximately 1800 on July 22 she experienced an episode of abdominal pain after eating dinner, a CT scan of the abdomen pelvis was performed which showed no evidence of bleed, or intra-abdominal pathology. It did show to pulmonary emboli. Reviewing the duplex that was done earlier that day showed superficial saphenous DVT without any evidence of deep DVT. Given her extensive peptic ulcer disease with recent GI bleed I determined that it was best for her to be transferred to a higher level of care where interventional radiology would be able to place a inferior vena cava filter. While awaiting [facility] a CT scan of the chest was also performed which showed bilateral PE with moderate clot. Multiple attempts were taken to transfer the patient finally a physician at [facility] accepted the patient and in consultation with him she was started on a heparin drip low dose, around midnight she unstable, it was actively resuscitated, given 2 more units of blood while waiting [facility] for the transfer. [facility] arrived sometime around 1:30 in the morning, she was hemodynamically stable at that time, repeat H&H was 9 and 27. [facility] then transferred the patient to [place] where by report upon landing she became unstable, unresponsive was taken to [facility] emergency room where she was unable to be resuscitated and she at that time. Please see [facility] and [facility]'s notes for further details. Discharge diagnosis: Upper GI bleed, perforated duodenal ulcer, bleeding duodenal ulcer. Secondary discharge diagnosis: DVT, PE Reason for admission: Upper GI bleed Procedures: Exploratory laparotomy, EGD x2, CT abdomen pelvis, CT of chest Time Spent with Patient Time attestation: Total time spent providing and/or coordinating discharge services: Time spent: Greater than 30 minutes Physical Examination Vital Signs Vital signs: Temp Pulse Resp BP Pulse Ox 97.6 F 107 H 16 101/55 100 07/23/21 02:22 07/23/21 02:22 07/23/21 02:22 07/23/21 02:22 07/23/21 02:22 Discharge Plan Patient/Caregiver Discharge Instructions Prescriptions: No Action Ocuvite Adult 50 Plus 250-5-1 mg capsule 1 cap PO QDAY 0RF Centrum Silver Women 8 mg iron-400 mcg-300 mcg tablet 1 tab PO QDAY 0RF coenzyme Q10 [CoQ-10] 100 mg capsule 100 mg PO QDAY 0RF cholecalciferol (vitamin D3) 1,000 unit capsule 1,000 unit PO QDAY 0RF omega 2-fij-pbq-fish oil 100-150-750 mg capsule 2 cap PO QDAY 0RF magnesium oxide-Mg AA chelate 300 mg capsule 1 cap PO QDAY 0RF atorvastatin 10 mg tablet 10 mg PO QDAY Qty: 90 4RF hydrochlorothiazide 25 mg tablet 25 mg PO QDAY Qty: 90 4RF lisinopril 10 mg tablet 10 mg PO QAM 0RF piroxicam [Feldene] 10 mg capsule 10 mg PO QAM 0RF gabapentin 100 mg capsule 200 mg PO QAM 0RF Rx Instructions: 1 by mouth every day for 3 days then increase to 2 times a day ibuprofen 800 mg tablet 800 mg PO TID PRN (Reason: pain) Qty: 90 0RF acetaminophen [Tylenol 8 Hour] 650 mg tablet extended release 650 mg PO Q8H PRN (Reason: pain) Qty: 90 0RF oxycodone 5 mg tablet 5 mg PO Q6H PRN (Reason: pain) Qty: 5 0RF Follow Up Plan Follow up with: Kane Pereira MD [Physician] - 07/30/21 3:00 pm Inez Farrar ARNP [Primary Care Provider] - Patient Disposition: Xfer Other Prognosis: Fair Discharge Comment: left via EMS and [facility] Pending Pending Pending: Diet Full Liquid Diet Start Rosalva Jul 19 1422 Shift Summary 07/21/21 17:19 Shift Summary by Betsy Persaud Primary Diagnosis: Upper GI Bleed Registration Status: Day of Hospitalization: Admit 2/3 Date of Surgery (if applicable): 2/3 EGD, Exp Lap Pertinent Medical Dx/Issues (may be more than one): Diverticulosis, colon polyp, multiple blood transfusions during this visit Interventions (O2, wounds, diuresis, etc): Midline abdominal incision with Dermabond, MARILYN drain to RUQ with serosanguineous drainage Vital Signs with Trends: BP 130's/70's Meds (abo, pain, BP, etc): Scheduled Zosyn q6. TPN stopped today also IV maintenance was stopped. PICC locked now. Lines/Tubes: PICC ADRIAN Oxygen needs (home use vs. current use): RA Lab/Rad results: H/H this am 5.6/17.6, she did receive 2 units PRBC, H/H post transfusion was 8.0/23.9, MD states he will check CBC in AM Date of last BM: Liquid/loose Bm today multiple times Elimination: BSC/briefs Recommendations/questions for MD (DC [place]? DC CM? PICC needed?): Trends (is the patient improving?): Activity: Up with FWW, GB, SBA. Pt ambulated to and from shower and washed up by herself Expected date of discharge: TBD Discharge Plan (needs, disposition, etc): TBD Initialized on 07/21/21 17:19 - END OF NOTE
== END 2021-07-23 01:32 | disposition other institution (70) | DRG 326 ==
LOC: MEDSUR 20:07 → ED 20:07 → MEDSUR 07-12 03:45 → ICU 07-13 18:18 → MEDSUR 07-19 16:59 → ICU 07-22 00:15
PROVIDERS: ADMIT Surgery; ATTEND Surgery